=== PATIENT | male | born 1950 | race Caucasian/White ===

== ENCOUNTER 2020-12-22 10:29 | Inpatient (IN) | payer MEDICARE, SELFPAY ==
[2020-12-22] VITALS (10 sets, daily range): BP systolic 135–174; BP diastolic 71–105; PULSE 72–100; RESP 16–18; TEMP 36.4–36.8; O2SAT 96–98; BMI 27.7; BMI 29.2
--- NOTE | 2020-12-22 11:28 | EDS_ITS ---
HPI History of Present Illness Chief Complaint: General Illness Narrative Narrative: 70-year-old male presenting with generalized weakness as well as nausea for the last 3 weeks. Patient his states that he was working in the garden about 3 weeks ago and something stung him on his left buttocks. He had a rash initially but he states this is improving. Over the last couple of weeks he has had some nausea with eating and drinking and states that if he has too much he will vomit. He denies diarrhea or constipation. Patient does not have any urinary complaints. Patient does state that he has lost 25 pounds due to not eating and drinking. Patient also complains of right calf pain and denies any injury. He states he has a history of DVT and PE and is not anticoagulated. He does not recall why he had blood clots in the past. Patient is denying chest pain or shortness of breath. Patient denies, cough, chills, body aches. Patient does admit to fatigue. Patient states that he had a fever 101 a week ago. He has not had a repeat fever since then. His states that he looked sweaty last night but they did not check his temperature. [facility] Medical History History of DVT (deep vein thrombosis) History of pulmonary embolus (PE) Pilonidal cyst Seasonal allergies Home Medications albuterol sulfate 90 mcg/actuation aerosol inhaler 2 puff INHALATION Q4H PRN 30 Days #8 g 12/25/19 [Rx Last Taken Unknown] acetaminophen 1,000 mg PO TID PRN 12/22/20 [History Last Taken 12/21/20] Allergy/AdvReac Type Severity Reaction Status Date / Time acetaminophen [From Vicodin] AdvReac Severe rash and Verified 12/22/20 10:37 itching hydrocodone [From Vicodin] AdvReac Severe rash and Verified 12/22/20 10:37 itching Social History Smoking Status: Former smoker ROS ROS ED Constitutional Constitutional ED: Reports fever(s) and sweats Eyes Eyes: Denies blurry vision or diplopia ENT ENT ED: Denies rhinorrhea or sore throat Cardiovascular Cardiovascular: Denies chest pain or palpitations Respiratory/Chest Respiratory/Chest: Denies cough, dyspnea or sputum Gastrointestinal Gastrointestinal: Reports nausea and vomiting Genitourinary Genitourinary ED: Denies dysuria or hematuria Musculoskeletal Musculoskeletal: Denies arthralgias, back pain, myalgias or neck pain Integumentary Reports rash and other Details: Superficial rash to left buttocks Neurologic Neurologic: Denies headache(s) or paresthesias EXAM Physical Exam Const Vital Signs: 12/22/20 10:32 12/22/20 10:53 Temperature 97.6 F L Temperature Source Temporal Pulse Rate 100 Respiratory Rate 16 Respiratory Pattern Normal Blood Pressure 135/85 H Blood Pressure Mean 101 Pulse Ox 97 Oxygen Delivery Method Room Air Positive well nourished General Appearance ED: NAD HEENT Reports moist mucous membranes Negative for trauma Eyes PERRL and EOMs intact bilaterally Neck no lymphadenopathy and supple Resp normal respiratory effort and clear to auscultation bilaterally Cardio regular rate and regular rhythm Extremity Extremity Narrative: Tenderness to palpation over the central aspect of the right calf. There is no cords palpated. Compartments are soft. No swelling. No cellulitic changes. Neuro oriented x3, CN's II-XII intact bilaterally and no sensory deficits noted Sensorium / Orientation: alert Motor Exam: strength 5/5 throughout Psych mental status grossly normal Skin Skin Narrative: Punctate areas of left gluteal region which are scabbed over. No cellulitic changes. No crepitance. MDM MDM MDM Narrative Medical decision making narrative: Patient presenting with multiple symptoms of generalized weakness, fatigue, weight loss, forwarded sweating at home last evening. Initially he stated that he had not had any shortness of breath. Patient does relate a history of DVT and PE but does not recall if these were provoked or nonprovoked. I did obtain an EKG due to the diaphoresis last evening. His EKG shows a normal sinus rhythm with a ventricular rate of 84 bpm without signs of ST elevation or depression on my interpretation. His chest x- ray shows no acute cardiopulmonary process. His CBC shows a slight leukocytosis of 14.7 however his H&H stable and platelets are normal. Creatinine is 1.54 and I have no comparison. Troponin ended up being elevated at 126. Is unclear if this is due to a cardiac cause due to his diaphoresis last evening. I went to speak with him again about it he states that he had a couple episodes where he felt like he was short of breath but was not. He is not describing sharp chest pain or pleuritic chest pain. Is not describing chest pressure. He just states that he is short of breath. He did get aspirin 324 mg p.o. I did obtain a DVT study of the right lower extremity which showed an extensive DVT throughout the whole right lower extremity. For this reason and given his diaphoresis I did check a CTA and this is positive for bilateral PEs. It is possible that his troponin could be elevated because of heart strain although the radiologist does not note this on CTA. Given patient's abnormal findings I feel he would benefit from inpatient treatment. I spoke with the hospitalist who recommended starting heparin drip and this will be started. She also did recommend checking a Covid PCR which was ordered. This is pending on admission and will be followed by the hospitalist. Patient is stable on transfer to the medical floor. Impression: 1. Generalized weakness 2. NSTEMI 3. Bilateral PEs 4. Right lower extremity extensive DVT 5. Renal insufficiency Lab Data Labs: Laboratory Results - last 24 hr 12/22/20 12/22/20 11:56 11:56 WBC 14.7 H RBC 4.95 Hgb 14.7 Hct 43.6 MCV 88.1 MCH 29.7 MCHC 33.7 RDW Std Deviation 40.8 RDW Coeff of Maciej 12.6 Plt Count 195 MPV 10.7 Immature Gran % (Auto) 1.400 H Neut % (Auto) 75.5 H Lymph % (Auto) 7.6 L Howell % (Auto) 14.9 H Eos % (Auto) 0.1 Baso % (Auto) 0.5 Absolute Neuts (auto) 11.1 H Absolute Lymphs (auto) 1.11 Nucleated RBC % 0 Differential Comment COMMENT Diff Path Review May foll Sodium 132 L Potassium 4.6 Chloride 97 L Carbon Dioxide 25.0 Anion Gap 10 BUN 49 H Creatinine 1.54 H Estim Creat Clear Calc 46.18 Est GFR (MDRD) Af Amer 57 L Est GFR (MDRD) Non-Af 47 L BUN/Creatinine Ratio 31.8 H Glucose 118 H Calcium 9.2 Total Bilirubin 0.90 AST 19 ALT 32 Alkaline Phosphatase 78 Troponin I High Sens 126 H* Total Protein 7.9 Albumin 3.0 L Globulin 4.9 H Albumin/Globulin Ratio 0.6 L Lipase 50 L Radiography Diagnostic Testing: Radiology Impression Venous Doppler Study 12/22/20 11:41 Interpretation Summary RT CFV IS partially compressible. RT SFJ is partially compressible with echoes consistent with acute DVT. RT FV , POPV, T/P TRUNK, PTV, PEROV are dilated and NONCOMPRESSIBLE consistent with acute DVT. RT GSV is compressible . Normal flow patterns left common femoral vein Ordering Physician: Toney Machado Performed By: Amarilys Chambers, RDCS, RVT Chest X-Ray 12/22/20 12:30 IMPRESSION: Nonacute portable x-ray examination of the chest. Electronically Signed: Saad Quinteros MD ([place]) at 12:45 EDT , Service support , Chest CTA 12/22/20 12:31 IMPRESSION: 1. Multiple segmental pulmonary embolism. No saddle embolus or CT evidence of right heart strain. Electronically Signed: Saad Quinteros MD (Brooks) at 13:45 EDT , Service support , ADDENDUM: 12/22/20 1356 IMPRESSION: 1. Multiple segmental pulmonary embolism. No saddle embolus or CT evidence of right heart strain. N.B. : The above Results were Read Back by Saad Quinteros MD (Brooks) to Toney Machado DO, and understanding confirmed on 12/22/2020 13:49:42 (ET). Electronically Signed: Saad Quinteros MD (Brooks) at 13:45 EDT , Service support , Discharge Plan Triage Chief Complaint: General Illness ED Provider: Toney Machado Dx/Rx/DC Orders Primary Care Provider: Ximena Rey NP
--- NOTE | 2020-12-22 11:41 | VDLE_ITS ---
Reason For Study: PULM EMB RIGHT LEFT GSV is normal. CFV is compressible, spontaneous, phasic, RT CFV IS partially compressible. competent, and demonstrates normal RT SFJ is partially compressible with echoes augmentation. consistent with acute DVT. RT FV , POPV, T/P TRUNK, PTV, PEROV are dilated and NONCOMPRESSIBLE consistent with acute DVT. RT GSV is compressible . Procedure Exam performed portable in ED. A preliminary report was called and/or faxed to ED. VL/Venous Duplex US, Unilateral Interpretation Summary RT CFV IS partially compressible. RT SFJ is partially compressible with echoes consistent with acute DVT. RT FV , POPV, T/P TRUNK, PTV, PEROV are dilated and NONCOMPRESSIBLE consistent with acute DVT. RT GSV is compressible . Normal flow patterns left common femoral vein Ordering Physician: Toney Machado Performed By: Amarilys Chambers RDCS, RVT
--- NOTE | 2020-12-22 11:42 | EKG12_ITS ---
Test Reason : Blood Pressure : / mmHG Vent. Rate : 084 BPM Atrial Rate : 084 BPM P-R Int : 150 ms QRS Dur : 090 ms QT Int : 382 ms P-R-T Axes : 008 011 030 degrees QTc Int : 451 ms Normal sinus rhythm Anterior infarct , age undetermined Abnormal ECG Confirmed by SAM NGUYEN, ERUM ([id number]), field map editor KEVIN DE LEON ([id number]) on 12/23/2020 7:41:11 AM Referred By: YADIRA Confirmed By:ERUM VARGAS MD
[2020-12-22 12:05] LABS: Absolute Lymphocyte Count 1.11 X10^3/uL (0.83-4.51); Absolute Neutrophil Count 11.1 X10^3/uL (2.0-7.7); Basophil# 0.07 X10^3/uL; Basophil% 0.5 % (0-1); Eosinophil# 0.01 X10^3/uL; Eosinophils% 0.1 % (0-5); Hematocrit 43.6 % (40-54); Hemoglobin 14.7 g/dL (13.0-16.5); Lymphocyte # 1.11 X10^3/ul (0.83-4.51); Lymphocyte % 7.6 % (19-41); Mean Corp Hgb Conc 33.7 g/dL (32-36); Mean Corpuscular Hgb 29.7 pg (27.0-32.0); Mean Corpuscular Volume 88.1 fL (80-94); Mean Platelet Vol. 10.7 fl (6.2-12.0); Monocyte# 2.19 X10^3/uL; Monocyte% 14.9 % (0-10); NRBC Flagged by Analyzer 0 % (0-5); Neutrophil % 75.5 % (47-70); POSITIVE DIFFERENTIAL YES; Platelet Count 195 K/mm3 (150-450); RBC Distribution Width CV 12.6 % (11.6-14.6); RBC Distribution Width SD 40.8 fl (35.1-43.9); Red Blood Count 4.95 M/mm3 (4.6-6.2); White Blood Count 14.7 K/mm3 (4.4-11.0)
[2020-12-22 12:07] LABS: Differential Indicated SCAN CRITERIA MET
[2020-12-22] MEDS: Ondansetron 4 MG/2 ML Vial IV (12:13)
[2020-12-22 12:29] LABS: ALB/GLOB Ratio 0.6 RATIO (0.9-2.4); AST(SGOT) 19 U/L (15-37); Alanine Aminotransfer ALT/SGPT 32 U/L (16-61); Alkaline Phosphatase 78 U/L (45-117); Anion Gap 10 (5-15); BUN 49 mg/dL (7-18); BUN/Creat Ratio 31.8 RATIO (10-20); Calcium,Total 9.2 mg/dL (8.5-10.1); Chloride 97 mmol/L (98-107); Creatinine, Serum 1.54 mg/dL (0.70-1.30); EST Glomerular Filtration Rate 47 mL/min (>60); Est Glom Filt Rate - Afr Amer 57 mL/min (>60); Estimated Creatinine Clearance 46.18 ml/min; Globulin 4.9 g/dL (2.2-4.2); Glucose 118 mg/dL (74-106); Lipase 50 U/L (73-393); Potassium 4.6 mmol/L (3.5-5.1); Protein, Total 7.9 g/dL (6.4-8.2); Sodium Level 132 mmol/L (136-145); Troponin-I HS 126 pg/mL (3.0-78.0)
--- NOTE | 2020-12-22 12:30 | RAD_ITS ---
STUDY: X-RAY CHEST REASON FOR EXAM: Male, 70 years old. BODY ACHES, DECREASED ABILITY TO EAT, FEVERISH FEELING, WT'' LOSS - 25#. GENERAL DISCOMFORT. sTATES SX STARTED AFTER BUG BITE IN EARLT . RIGHT LOWER LEG PAIN TECHNIQUE: AP COMPARISON: None. FINDINGS: The lungs are clear and expanded. There is no demonstrated pleural abnormality. Normal size heart. Normal mediastinum and landon. Normal visualized pulmonary arteries. There is atherosclerotic tortuosity of the aortic arch and descending thoracic aorta. No acute bony process. There is no demonstrated abnormality of the visualized soft tissue structures of the upper abdomen. RAD/Chest 1 View (Portable) IMPRESSION: Nonacute portable x-ray examination of the chest. Electronically Signed: Saad Quinteros MD (Brooks) at 12:45 EDT , Service support ,
--- NOTE | 2020-12-22 12:31 | CT_ITS ---
We are attempting to reach an attending provider to discuss findings. An addendum with communication details will be sent when the communication is complete. STUDY: CTA CHEST REASON FOR EXAM: Male, 70 years old. Body aches, weight loss, right leg pain, weakness RADIATION DOSAGE (If Supplied By Facility): CTDIvol = ( 12.42 ) mGy, DLP = ( 507.44 ) mGycm TECHNIQUE: The examination was performed with the intravenous administration of IV 100mL Isovue-370. Post-processing of the angiographic images was performed, with multiplanar reformation and 3D reconstruction. Individualized dose optimization techniques were used for this CT. COMPARISON: None. FINDINGS: Normal enhancement of the main pulmonary artery and right and left pulmonary arteries. There are multiple filling defects involving the bilateral upper, lower, and right middle lobes. There is atherosclerotic calcification of the aortic arch with tortuosity. There is no demonstrated aortic dissection. No pericardial thickening. Heart size is normal. There are calcifications of the coronary arteries. Normal mediastinum. Normal hilar regions. Normal visualized trachea and bronchi. The lungs are hyper expanded, with flattening of the hemidiaphragms. There are bandlike parenchymal changes most consistent with atelectasis of the bilateral lungs. Scattered centrilobular emphysematous blebs. Normal pleura. Normal chest wall structures. There are degenerative changes of thoracic spine. Normal visualized upper abdomen. CT/CTA Chest W/WO Contrast IMPRESSION: 1. Multiple segmental pulmonary embolism. No saddle embolus or CT evidence of right heart strain. Electronically Signed: Saad Quinteros MD (Brooks) at 13:45 EDT , Service support ,
[2020-12-22] MEDS: Aspirin 81 MG TAB.CHEW 324 MG PO (13:02)
--- NOTE | 2020-12-22 14:14 | HP.PCM.HOS_ITS ---
HPI - General General Date of Admission: 12/22/20 Date of Service: 12/22/20 Chief Complaint: Dyspnea. HPI Narrative The patient is a 70 y/o M w/ PMHx: Hx prior DVT/PE, Allergic Rhintis who presents to the [facility] ED on 12/22/20 with history of generalized weakness, fatigue, malaise and nausea over the last 3 weeks with difficulty eating with bouts of emesis with remarks 25 pound weight loss secondary to significant decreased intake with onset of right lower extremity pain with no fever, chills, cough, body aches however he did report having a fever of 101 approximately 1 week prior to current presentation and reports also being diaphoretic at night. Work-up in the ED included T 97.6, heart rate 100, BP 135/85, respiratory rate 16, 97% on room air, CBC with WBC 14.7, hemoglobin 14.7, platelet 195 with left shift, CMP with sodium 132, chloride 97, BUN/creatinine 49/1.54, glucose 118, unremarkable hepatic profile, lipase 50, chest x-ray with no acute cardiopulmonary findings, CTPA w/ multiple segmental pulmonary embolism with no saddle embolus or evidence of right heart strain, bilateral lower extremity duplex ultrasound with evidence right lower extremity acute DVT, rapid Covid antigen negative, EKG with sinus rhythm with nonspecific changes with no acute evidence of ischemia, requested PCR. In the ED patient ministered aspirin 324 mg p.o. x1 as well as Zofran 4 mg IV x1. Patient started on heparin drip. [facility] Medical History (Updated 12/22/20 @ 19:[address] Peg Marinelli MD) Former tobacco use History of DVT (deep vein thrombosis) History of pulmonary embolus (PE) History of venous thromboembolism Pilonidal cyst Seasonal allergies Home Medications albuterol sulfate 90 mcg/actuation aerosol inhaler 2 puff INHALATION Q4H PRN 30 Days #8 g 12/25/19 [Rx Last Taken Unknown] acetaminophen 1,000 mg PO TID PRN 12/22/20 [History Last Taken 12/21/20] Allergy/AdvReac Type Severity Reaction Status Date / Time acetaminophen [From Vicodin] AdvReac Severe rash and Verified 12/22/20 10:37 itching hydrocodone [From Vicodin] AdvReac Severe rash and Verified 12/22/20 10:37 itching Family History (Updated 12/22/20 @ 19:[address] Peg Marinelli MD) Mother Heart disease Diabetes Father Heart disease Surgical History (Updated 12/22/20 @ 19:[address] Peg Marinelli MD) No significant past surgical history no surgical history Social History (Updated 12/22/20 @ 19:[address] Peg Marinelli MD) household members: spouse Smoking Status: Former smoker how long ago did patient quit smoking: Quit 2 years prior, prior 1 ppd (higher remotely) since early teenager. alcohol intake: former substance use type: does not use ROS ROS Narrative Admission Review of Systems: CONSTITUTIONAL: No chills, + hx recent fever 1 week prior, weight loss, weakness or fatigue. HEENT: Eyes: No visual loss, blurred vision, double vision or yellow sclerae. Ears, Nose, Throat: No hearing loss, sneezing, congestion, runny nose or sore throat. SKIN: No rash or itching, lesions, wounds. CARDIOVASCULAR: + chest pain/pleuritic, No chest pressure or chest discomfort, palpitations, edema, orthopnea, syncopal events. RESPIRATORY: + shortness of breath, No marked cough or sputum, wheezing, hemoptysis. GASTROINTESTINAL: + anorexia, nausea with vomiting, No diarrhea, abdominal pain, melena, BRBPR. GENITOURINARY: No dysuria, frequency, urgency or retention. NEUROLOGICAL: No headache, dizziness, syncope, paralysis, ataxia, numbness or tingling in the extremities, focal weakness, change in bowel or bladder control, seizure. MUSCULOSKELETAL: + muscle, back pain, joint pain or stiffness. HEMATOLOGIC: No anemia, bleeding or bruising. LYMPHATICS: No enlarged nodes. No history of splenectomy. PSYCHIATRIC: No history of depression or anxiety. ENDOCRINOLOGIC: No reports of sweating, cold or heat intolerance. No polyuria or polydipsia. ALLERGIES: + history of asthma, hives, eczema or rhinitis. Vital Signs Vital Signs Vital Signs: 12/22/20 10:32 12/22/20 10:53 Temperature 97.6 F L Temperature Source Temporal Pulse Rate 100 Respiratory Rate 16 Respiratory Pattern Normal Blood Pressure 135/85 H Blood Pressure Mean 101 Pulse Ox 97 Oxygen Delivery Method Room Air Weight Weight: 199 lb Body Mass Index (BMI) 27.7 Physical Exam Narrative Physical Examination: General: Awake, alert, oriented x 3, hard of hearing, remains cooperative, seated upright in the ED bed, fatigued appearing, no evidence of any respiratory distress. Skin: Normal color, normal turgor, no icterus, no cyanosis except for various staged ecchymoses. HEENT: AT/NC, EOMI, PERRLA, moderately dry MM, no carotid bruits or JVD noted. Lungs: Diminished, greater bases, mildly decreased effort, no rales, ronchi or wheezing. Heart: Mildly tachycardic with regular rhythm; no gallop, rub audible. Abdomen: Soft, NTTP, ND, mildly distant hyperactive BS, no obvious evidence of HSM. Extremities: No cyanosis, no clubbing, mild right greater than left lower extremity swelling, not markedly pitting, tender to palpation. Neurological: Patient awake, alert, oriented as noted, cognitive function appears baseline intact, hard of hearing; pupils equally reactive to light and accommodation, cranial nerves II-XII grossly normal, moving all 4 extremities, no focal deficits, strength moderately to severely global decrease. Psychiatric: Affect appears fatigued, no acute evidence of depressive or anxiety feelings. Results Lab / Micro Data Result Diagrams: 12/22/20 11:56 12/22/20 11:56 Labs: Laboratory Results - last 24 hr 12/22/20 11:56: WBC 14.7 H, RBC 4.95, Hgb 14.7, Hct 43.6, MCV 88.1, MCH 29.7, MCHC 33.7, RDW Std Deviation 40.8, RDW Coeff of Maciej 12.6, Plt Count 195, MPV 10.7, Immature Gran % (Auto) 1.400 H, Neut % (Auto) 75.5 H, Lymph % (Auto) 7.6 L , Meade % (Auto) 14.9 H, Eos % (Auto) 0.1, Baso % (Auto) 0.5, Absolute Neuts (auto) 11.1 H, Absolute Lymphs (auto) 1.11, Nucleated RBC % 0, Differential Comment COMMENT, Diff Path Review July12/22/20 11:56: Sodium 132 L, Potassium 4.6, Chloride 97 L, Carbon Dioxide 25.0, Anion Gap 10, BUN 49 H, Creatinine 1.54 H, Estim Creat Clear Calc 46.18, Est GFR (MDRD) Af Amer 57 L, Est GFR (MDRD) Non-Af 47 L, BUN/Creatinine Ratio 31.8 H, Glucose 118 H, Calcium 9.2, Total Bilirubin 0.90, AST 19, ALT 32, Alkaline Phosphatase 78, Troponin I High Sens 126 H*, Total Protein 7.9, Albumin 3.0 L, Globulin 4.9 H, Albumin/Globulin Ratio 0.6 L, Lipase 50 L Micro: Microbiology 12/22/20 12:49 Nasal Secretion SARS-CoV-2 Antigen (Rapid) - Final Radiology Impression Venous Doppler Study 12/22/20 11:41 Interpretation Summary RT CFV IS partially compressible. RT SFJ is partially compressible with echoes consistent with acute DVT. RT FV , POPV, T/P TRUNK, PTV, PEROV are dilated and NONCOMPRESSIBLE consistent with acute DVT. RT GSV is compressible . Normal flow patterns left common femoral vein Ordering Physician: Toney Machado Performed By: Amarilys Chambers, RDCS, RVT Chest X-Ray 12/22/20 12:30 IMPRESSION: Nonacute portable x-ray examination of the chest. Electronically Signed: Saad Quinteros MD (Brooks) at 12:45 EDT , Service support , Chest CTA 12/22/20 12:31 IMPRESSION: 1. Multiple segmental pulmonary embolism. No saddle embolus or CT evidence of right heart strain. Electronically Signed: Saad Quinteros MD (Brooks) at 13:45 EDT , Service support , ADDENDUM: 12/22/20 1356 IMPRESSION: 1. Multiple segmental pulmonary embolism. No saddle embolus or CT evidence of right heart strain. N.B. : The above Results were Read Back by Saad Quinteros MD (Brooks) to Toney Machado DO, and understanding confirmed on 12/22/2020 13:49:42 (ET). Electronically Signed: Saad Quinteros MD (Brooks) at 13:45 EDT , Service support , Assessment & Plan Assessment/Plan (1) Bilateral pulmonary embolism: PLAN: The patient is a 70 y/o M w/ PMHx: Hx prior DVT/PE, Allergic Rhintis who presents to the [facility] ED on 12/22/20 with history of generalized weakness, fatigue, malaise and nausea over the last 3 weeks with difficulty eating with bouts of emesis with remarks 25 pound weight loss secondary to significant decreased intake with onset of right lower extremity pain with no fever, chills, cough, body aches however he did report having a fever of 101 approximately 1 week prior to current presentation and reports also being diaphoretic at night. 1. Dyspnea, chest pain secondary to Pulmonary Embolism with elevated cardiac enzyme likely associated secondary to demand with prior history of DVT/PE LLE/L sided PE remotely, Questionably related to Acute COVID-19 (awaiting PCR given history reported, rapid antigen negative): EKG without acute findings, CXR no acute process, CTPA with multiple segmental pulmonary embolism with no evidence of saddle embolism, troponin mildly elevated 126. Patient with prior DVT/PE history. Will admit to PCU, maintain on cardiac telemetry. Will obtain ECHO, BNP. ED BL LE DVT US with evidence of right lower extremity acute DVT. Will continue therapeutic heparin drip regimen with pending AM insurance oral regimen investigation. Rapid Covid antigen testing negative however given sudden acute onset presentation will request PCR to be cautious although does have prior VTE history and is not anticoagulated currently upon his presentation. 2. Chest Pain likely secondary to #1 primarily however mildly elevated cardiac enzyme, possibly demand: EKG in ED w/ sinus rhythm with nonspecific changes with no evidence of ischemia, CXR w/ no acute cardiopulmonary findings, CTPA as noted above with multiple segmental pulmonary embolism with no saddle. Trop elevated, high-sensitivity 126. Will maintain on a monitored bed, continue serial cardiac enzymes and EKGs. Obtain magnesium level upon admission. FLP in AM. Obtain echocardiogram. Continue medical management. ASA, NG, morphine. 3. Failure to thrive, adult: Patient with significant recent weight loss, decreased oral intake for the last 3 weeks, pending Covid PCR as noted, will maintain on fall precautions, consult nutrition, consult case management/PT/OT for discharge planning. 4. JONO versus Chronic Kidney Disease Stage III, unclear subtype: Admission BUN/Cr 49/1.54, baseline renal function unknown, continue judicious hydration, repeat BMP in AM. 5. DVT prophylaxis: SCDs, continue heparin drip as noted above. 6. CODE status: Patient VICENTE is his who is present and his daughter is secondary and living will is currently in place. Discussed CODE status at length including difference between FULL code, DNR-CCA and DNR-CC status. Following discussions about the differences in these status, requested Full Code status. Advanced Care Planning Face to Face Time: 16 minutes. Charges/Coding Visit Charges Inpatient E&M: 82503 Init Hosp L3 Procedures Hospitalists Procedures: 52363 Advncd Care Plan 30 Min
[2020-12-22 15:01] LABS: Magnesium 2.5 mg/dL (1.6-2.6)
[2020-12-22] MEDS: Heparin Injection (Vial) 5,000 UNIT/ML VIAL 4000 UNIT IV (15:12)
[2020-12-22] MEDS: HEPARIN/D5w 25,000 UNITS 25,000 UNITS/250 ML IV.SOLN. 10 UNITS IV (15:17)
[2020-12-22 15:20] LABS: BNP,B-Type NATRIURETIC PEPTIDE 52.1 pg/mL (0-100)
[2020-12-22 15:25] LABS: International Normalized Ratio 1.4; Partial Thromboplast Time 29.5 Seconds (24.1-36.2); Prothrombin Time (Protime)PT. 16.6 SECONDS (11.7-14.9)
--- NOTE | 2020-12-22 16:19 | PCS.PANDOC ---
PANDEMIC DOCUMENTATION INITIATED: Date: 11/03/2020 Time: 190
--- NOTE | 2020-12-22 16:31 | ECHOCS_ITS ---
Version 2 Reason For Study: PULMONARY EMBOLISM Procedure This was a 2D Doppler, Color Flow transthoracic echocardiogram. The study was technically difficult. Poor parasteranl accoustic windows. Contrast injection was performed. Left Ventricle Based upon the 2D echocardiographic and contrast enhanced images obtained there appears to be grossly normal left ventricular size, wall motion, and systolic function. The estimated ejection fraction is 65 %. Diastolic function is indeterminate. Right Ventricle Based upon the 2D echocardiographic and contrast enhanced images obtained there appears to be grossly normal right ventricular size and systolic function. Atria Normal left atrium. Normal right atrium. No doppler evidence for ASD. Mitral Valve There is mild mitral annular calcification. Extension of the mitral annular calcification onto the base of the posterior mitral valve leaflet. Trivial mitral valve insufficiency. Tricuspid Valve The tricuspid valve is not well visualized. Aortic Valve The aortic valve is not well visualized. Pulmonic Valve The pulmonic valve is not well visualized. Great Vessels The aortic root is not well visualized. Pericardium/Pleural No pericardial effusion. Medication Diluted definity 2.0ml given slow IV push to enhance endocardial definition. MMode/2D Measurements & Calculations LVIDd: 4.8 cm IVSd: 1.1 cm LAV(MOD-sp2): 83.4 ml LVIDs: 3.2 cm LVPWd: 1.1 cm LAV(MOD-sp4): 67.4 ml FS: 32.9 % Time Measurements MV dec time: 0.27 sec Doppler Measurements & Calculations MV E max kerry: 69.7 cm/sec Ao V2 max: 159.9 cm/sec LV V1 max: 106.8 cm/sec MV A max kerry: 91.0 cm/sec Ao max P.2 mmHg LV V1 max P.6 mmHg MV E/A: 0.77 ECHO/Echo Complete W/ Contrast Interpretation Summary The study was technically difficult. Contrast injection was performed. Based upon the 2D echocardiographic and contrast enhanced images obtained there appears to be grossly normal left ventricular size, wall motion, and systolic function. The estimated ejection fraction is 65 %. Diastolic function is indeterminate. 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 Ordering Physician: Peg Marinelli Referring Physician: Ximena Rey Performed By: Anh Mendoza RDCS, CECI
--- NOTE | 2020-12-22 16:54 | EKG12_ITS ---
Test Reason : AM EKG Blood Pressure : / mmHG Vent. Rate : 071 BPM Atrial Rate : 071 BPM P-R Int : 158 ms QRS Dur : 092 ms QT Int : 420 ms P-R-T Axes : 031 020 025 degrees QTc Int : 456 ms Sinus rhythm with occasional Premature ventricular complexes Confirmed by TAWANDA NGUYEN, JOSÉ ([id number]), health editor KEVIN DE LEON ([id number]) on 12/23/2020 10:04:45 AM Referred By: ENRIQUE Confirmed By:JOSÉ NEFF MD
[2020-12-22] MEDS: 0.9% Normal Saline 1,000 ML 100 ML IV (16:59)
[2020-12-22] MEDS: HEPARIN/D5w 25,000 UNITS 25,000 UNITS/250 ML IV.SOLN. 14 UNITS IV (17:10)
[2020-12-22 17:33] LABS: Troponin-I HS 123 pg/mL (3.0-78.0)
[2020-12-22 19:15] LABS: Troponin-I HS 113 pg/mL (3.0-78.0)
[2020-12-22] MEDS: hydrALAZINE 20 MG/ML Vial 10 MG IV (20:15)
[2020-12-22] MEDS: Famotidine 20 MG Tablet PO (20:15)
[2020-12-23] VITALS (11 sets, daily range): BP systolic 140–165; BP diastolic 63–79; PULSE 69–87; RESP 16–18; TEMP 36.7–37.8; O2SAT 96–99
[2020-12-23] MEDS: Acetaminophen 325 MG Tablet 650 MG PO ×3 (02:35→20:19)
[2020-12-23 03:47] LABS: Absolute Neutrophil Count 8.2 X10^3/uL (2.0-7.7); Basophil# 0.12 X10^3/uL; Eosinophil# 0.14 X10^3/uL; Eosinophils% 1.2 % (0-5); Hematocrit 42.5 % (40-54); Hemoglobin 13.5 g/dL (13.0-16.5); Lymphocyte % 11.1 % (19-41); Mean Corp Hgb Conc 31.8 g/dL (32-36); Mean Corpuscular Hgb 29.5 pg (27.0-32.0); Mean Corpuscular Volume 92.8 fL (80-94); Mean Platelet Vol. 10.6 fl (6.2-12.0); Monocyte# 1.79 X10^3/uL; Monocyte% 15.4 % (0-10); NRBC Flagged by Analyzer 0 % (0-5); Neutrophil # 8.22 X10^3/uL (2.7-7.7); Neutrophil % 70.5 % (47-70); POSITIVE DIFFERENTIAL YES; Platelet Count 193 K/mm3 (150-450); RBC Distribution Width CV 12.8 % (11.6-14.6); RBC Distribution Width SD 43.4 fl (35.1-43.9); Red Blood Count 4.58 M/mm3 (4.6-6.2); White Blood Count 11.7 K/mm3 (4.4-11.0)
[2020-12-23 03:53] LABS: Differential Indicated SCAN CRITERIA MET
[2020-12-23 04:05] LABS: ALB/GLOB Ratio 0.6 RATIO (0.9-2.4); AST(SGOT) 16 U/L (15-37); Alanine Aminotransfer ALT/SGPT 25 U/L (16-61); Albumin, Serum 2.6 g/dL (3.2-5.0); Alkaline Phosphatase 73 U/L (45-117); Anion Gap 9 (5-15); BUN 42 mg/dL (7-18); BUN/Creat Ratio 35.6 RATIO (10-20); Calcium,Total 8.6 mg/dL (8.5-10.1); Chloride 102 mmol/L (98-107); Cholesterol 142 mg/dL (200); Creatinine, Serum 1.18 mg/dL (0.70-1.30); EST Glomerular Filtration Rate 64 mL/min (>60); Est Glom Filt Rate - Afr Amer 78 mL/min (>60); Estimated Creatinine Clearance 60.27 ml/min; Globulin 4.5 g/dL (2.2-4.2); Glucose 92 mg/dL (74-106); High Density Lipoprotein 29 mg/dL; Potassium 4.1 mmol/L (3.5-5.1); Protein, Total 7.1 g/dL (6.4-8.2); Sodium Level 134 mmol/L (136-145); Triglycerides 119 mg/dL; Very Low Density Lipoprotein 24 mg/dL (5-40)
[2020-12-23 04:25] LABS: Partial Thromboplast Time 67.9 Seconds (24.1-36.2)
[2020-12-23 04:46] LABS: Differential Comment SCANNED
--- NOTE | 2020-12-23 05:55 | EKG12_ITS ---
Test Reason : CP ADMISSION Blood Pressure : / mmHG Vent. Rate : 081 BPM Atrial Rate : 081 BPM P-R Int : 156 ms QRS Dur : 092 ms QT Int : 400 ms P-R-T Axes : 010 004 015 degrees QTc Int : 464 ms Normal sinus rhythm Normal ECG Confirmed by TAWANDA NGUYEN, JOSÉ ([id number]), story editor KEVIN DE LEON ([id number]) on 12/23/2020 10:07:48 AM Referred By: ENRIQUE Confirmed By:JOSÉ NEFF MD
[2020-12-23] MEDS: HEPARIN/D5w 25,000 UNITS 25,000 UNITS/250 ML IV.SOLN. 14 UNITS IV (09:43)
[2020-12-23] MEDS: Menthol/Lanolin/Calamine/Znox 113 GM Tube 1 APPLIC TOPICAL ×4 (09:45→20:19)
[2020-12-23] MEDS: Aspirin 81 MG TAB.CHEW PO (09:45)
[2020-12-23] MEDS: Famotidine 20 MG Tablet PO ×2 (09:45→20:19)
--- NOTE | 2020-12-23 10:45 | CASEMGMT ---
KATHRYN ADAME assessment: Face to Face with patient for initial transition planning/care coordination assessment. RN DEEP introduced self and role at [facility], pt voices understanding and consents to assessment. Pt is sitting up in bed on room air in no distress. Pt is A/O x4 and answers all questions appropriately. Pt's is at bedside during assessment. Care providers, pharmacy, and demographics verified. Presentation: Pt c/o body aches, decreased intake, fever, weight loss s/p bug bite in november Admitting dx: NSTEMI, PE, DVT PCP: [facility] Specialists: Pt states no current specialists. Preferred Pharmacy: [facility] Insurance: [facility] A only Prescription Benefit: Pt states does not have Rx coverage. CM to follow for anti-coag. Austin GUDINO aware that pt does not have Rx coverage, voices understanding. Living Will/HPOA: Pt has LW/HPOA and is aware that they are not on file at [facility]. Pt's , Chelo Montalvo, is HPOA. LNOK: Chelo Montalvo, ; Shawnee Ramirez, daughter Living Arrangements: Pt lives with in 2 story home with ability to stay on main level and states no concerns at home. Pt is independent with ADL's. Transportation: Pt drives or drives and states no transportation concerns. DME/HHC: Pt has the following DME: cane, walker, grab bars, and shower chair. Pt states no need for any further DME. Pt states no hx of HHC or SNF. Pt states no concerns with going home at time of discharge. Pt is retired. Pt states does not smoke cigarettes or drink ETOH. Pt voices no further concerns/needs. CM to follow for any further discharge planning/needs. Advised pt to ask for CM if any further questions/concerns/needs arise, voices understanding. Pt Goal: Home Plan[place] KATHRYN ADAME
--- NOTE | 2020-12-23 10:57 | NURSING ---
Pandemic documentation in effect.
[2020-12-23 11:16] LABS: Partial Thromboplast Time 64.5 Seconds (24.1-36.2)
[2020-12-23 12:01] LABS: Pathologist Review Reviewed
[2020-12-23 12:03] LABS: Pathologist Review Reviewed
--- NOTE | 2020-12-23 12:31 | PN.HOSP_ITS ---
Documented by User: Remy GUDINO 12/23/20 12:44 Subjective Subjective Patient is a 70-year-old male comfortably resting in bed, alert and orient x3. Patient reports resolution of his shortness of breath from admission. Denies development of any new symptoms overnight. Does not appear in acute distress. Objective Data Objective Data Vital Signs: Vital Signs Temp Pulse Resp BP Pulse Ox 98.1 F 79 18 145/63 H 98 12/23/20 09:40 12/23/20 11:00 12/23/20 09:40 12/23/20 09:40 12/23/20 09:40 Oxygen Delivery Method Room Air Weight: 209 lb 14.081 oz Body Mass Index (BMI) 29.2 Intake & Output: Intake and Output for Last 24 Hours 12/21/20 12/22/20 12/23/20 23:59 23:59 23:59 Intake Total 572.47 / 572.47 1237.73 / 1237.73 Output Total 600 / 600 200 / 200 Balance -27.53 / -27.53 1037.73 / 1037.73 Lab / Micro Data Result Diagrams: 12/23/20 03:34 12/23/20 03:34 Labs: Laboratory Results - last 24 hr 12/22/20 11:56: Differential Comment COMMENT, Diff Path Review Reviewed 12/22/20 11:56: Magnesium 2.5 12/22/20 11:56: B-Natriuretic Peptide 52.1 12/22/20 14:34: COVID-19 (KHALIF) Not Detected 12/22/20 15:10: PT 16.6 H, INR 1.4, APTT 29.5 12/22/20 16:55: Troponin I High Sens 123 H* 12/22/20 18:29: Troponin I High Sens 113 H 12/22/20 21:35: APTT 67.0 H 12/23/20 03:34: WBC 11.7 H, RBC 4.58 L, Hgb 13.5, Hct 42.5, MCV 92.8 D, MCH 29.5, MCHC 31.8 L D, RDW Std Deviation 43.4, RDW Coeff of Maciej 12.8, Plt Count 193, MPV 10.6, Immature Gran % (Auto) 0.800, Neut % (Auto) 70.5 H, Lymph % (Auto) 11.1 L, [place] % (Auto) 15.4 H, Eos % (Auto) 1.2, Baso % (Auto) 1.0, Absolute Neuts (auto) 8.2 H, Absolute Lymphs (auto) 1.30, Nucleated RBC % 0, Differential Comment SCANNED, Diff Path Review Reviewed 12/23/20 03:34: Sodium 134 L, Potassium 4.1, Chloride 102, Carbon Dioxide 23.0, Anion Gap 9, BUN 42 H, Creatinine 1.18, Estim Creat Clear Calc 60.27, Est GFR (MDRD) Af Amer 78, Est GFR (MDRD) Non-Af 64, BUN/Creatinine Ratio 35.6 H, Glucose 92, Calcium 8.6, Total Bilirubin 0.60, AST 16, ALT 25, Alkaline Phosphatase 73, Total Protein 7.1, Albumin 2.6 L, Globulin 4.5 H, Albumin/Globulin Ratio 0.6 L, Triglycerides 119, Cholesterol 142, LDL Cholesterol 89, VLDL Cholesterol 24, HDL Cholesterol 29 L 12/23/20 03:34: APTT 67.9 H 12/23/20 10:53: APTT 64.5 H Micro: Microbiology 12/22/20 12:49 Nasal Secretion SARS-CoV-2 Antigen (Rapid) - Final Radiography Diagnostic Testing: Radiology Impression Venous Doppler Study 12/22/20 11:41 Interpretation Summary RT CFV IS partially compressible. RT SFJ is partially compressible with echoes consistent with acute DVT. RT FV , POPV, T/P TRUNK, PTV, PEROV are dilated and NONCOMPRESSIBLE consistent with acute DVT. RT GSV is compressible . Normal flow patterns left common femoral vein Ordering Physician: Toney Machado Performed By: Amarilys Chambers, PINOCS, RVT Chest X-Ray 12/22/20 12:30 IMPRESSION: Nonacute portable x-ray examination of the chest. Electronically Signed: Saad Quinteros MD (Brooks) at 12:45 EDT , Service support , Chest CTA 12/22/20 12:31 IMPRESSION: 1. Multiple segmental pulmonary embolism. No saddle embolus or CT evidence of right heart strain. Electronically Signed: Saad Quinteros MD (Brooks) at 13:45 EDT , Service support , ADDENDUM: 12/22/20 1356 IMPRESSION: 1. Multiple segmental pulmonary embolism. No saddle embolus or CT evidence of right heart strain. N.B. : The above Results were Read Back by Saad Quinteros MD (Brooks) to Toney Machado DO, and understanding confirmed on 12/22/2020 13:49:42 (ET). Electronically Signed: Saad Quinteros MD (Brooks) at 13:45 EDT , Service support , Echocardiogram 12/22/20 16:31 Interpretation Summary The study was technically difficult. Contrast injection was performed. Based upon the 2D echocardiographic and contrast enhanced images obtained there appears to be grossly normal left ventricular size, wall motion, and systolic function. The estimated ejection fraction is 65 %. Diastolic function is indeterminate. Comment: Echo lucency compatible with an hepatic cyst-consider further radiologic evaluation as deemed appropriate. Ordering Physician: Peg Marinelli Referring Physician: Ximena Rey Performed By: Anh Mendoza, RDCS, RVT Physical Exam Const alert, oriented x3 and no apparent distress HEENT head/scalp atraumatic, moist oral mucous membranes and oropharynx normal Head and Scalp: normocephalic Eyes PERRL, EOMs intact bilaterally and conjunctivae normal Neck no lymphadenopathy, supple and no JVD Resp normal respiratory effort, no retractions, no use of accessory muscles and clear to auscultation bilaterally Cardio regular rate, regular rhythm, no murmurs and no JVD GI normal to inspection, nondistended, normoactive bowel sounds, soft to palpation and non-tender Extremity normal to inspection, full ROM and no clubbing, cyanosis or edema Peripheral Pulses: Yes pulses 2+ throughout Skin no rashes or lesions noted, no wounds, skin turgor normal and no jaundice Neuro CN's II-XII intact bilaterally Psych affect normal Assessment & Plan Assessment/Plan (1) Bilateral pulmonary embolism: (2) SOB (shortness of breath): (3) Wheezing: PLAN: Day 1 Discharge planning: Current plan is for patient to discharge home, case management following. 1) pulmonary embolism Patient reports improvement of shortness of breath and does not appear to be in acute distress, currently satting 98% on room air. Chest CTA on admission demonstrated multiple segmental pulmonary embolism. Doppler study consistent with right-sided deep venous thrombosis. Rapid Covid was negative on admission, PCR pending. Currently on heparin drip initiated at admission. Possible discharge tomorrow. 2) adult failure to thrive On admission patient admitted that he had significant weight loss and decreased oral intake the last 3 weeks. Infectious etiology being worked up as above. Case management and PT/OT consulted for discharge planning. 3) JONO Resolved, currently 1.18 we will continue to trend BMP. DVT prophylaxis - SCDs with therapeutic heparin as above. Patient seen by Remy Edwards PA-C, under the supervision of Dr. Karimi. Documented by User: Dr. Cyrus Karimi MD 12/23/20 12:58 Objective Data Lab / Micro Data Result Diagrams: 12/23/20 03:34 12/23/20 03:34 Assessment & Plan Addt'l Comments This patient was seen in conjunction with Remy Edwards PA-C. I have independently interviewed and examined the patient and reviewed pertinent historical, laboratory, and other data. Please refer to Remy Edwards PA-C's note for details of this patient's presentation, findings, and recommendations. I have reviewed Remy Edwards PA-C's note and concur with documented findings. 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 Venous duplex obtained demonstrated acute DVT involving the right lower extremities multiple vessels. CTA subsequently obtained demonstrated multiple segmental pulmonary embolism started on heparin admitted to a monitored bed for further management Physical Examination: GENERAL: cooperative HEENT: Atraumatic; EYES; Anicteric, Normal Conjunctiva NECK; supple, normal thyroid, RESPIRATORY: Diminished to auscultation CARDIOVASCULAR: Regular S1 S2, GI: soft, normoactive bowel sounds, : No Renal angle tenderness; EXTREMITIES: No edema, no clubbing, MUSCULOSKELETAL: no muscle waisting NEURO: Awake; no lateralizing signs. SKIN: No Rash PSYCH; Flat affect Assessment: 1. Acute venous thromboembolism with both PE as well as DVT 2. Seasonal allergies 3. Overweight with BMI of 39.3 4. Mild hyponatremia 5. Acute renal insufficiency Recommendations: 1. I have discussed the results of my overview and impressions with the patient 2. Options for management were reviewed Charges/Coding Visit Charges Inpatient E&M: 79641 Subs Hosp L3
[2020-12-23 16:52] LABS: Partial Thromboplast Time 60.8 Seconds (24.1-36.2)
[2020-12-24] VITALS (9 sets, daily range): BP systolic 151–168; BP diastolic 76–82; PULSE 67–83; RESP 18; TEMP 36.4–37.6; O2SAT 97–98
[2020-12-24] MEDS: HEPARIN/D5w 25,000 UNITS 25,000 UNITS/250 ML IV.SOLN. 14 UNITS IV (04:08)
[2020-12-24] MEDS: Acetaminophen 325 MG Tablet 650 MG PO ×2 (04:16→12:32)
[2020-12-24 06:42] LABS: Absolute Lymphocyte Count 1.16 X10^3/uL (0.83-4.51); Absolute Neutrophil Count 7.6 X10^3/uL (2.0-7.7); Basophil# 0.09 X10^3/uL; Basophil% 0.8 % (0-1); Eosinophil# 0.28 X10^3/uL; Eosinophils% 2.5 % (0-5); Hematocrit 38.4 % (40-54); Hemoglobin 12.8 g/dL (13.0-16.5); Lymphocyte # 1.16 X10^3/ul (0.83-4.51); Lymphocyte % 10.4 % (19-41); Mean Corp Hgb Conc 33.3 g/dL (32-36); Mean Corpuscular Hgb 29.3 pg (27.0-32.0); Mean Corpuscular Volume 87.9 fL (80-94); Mean Platelet Vol. 10.9 fl (6.2-12.0); Monocyte# 1.82 X10^3/uL; Monocyte% 16.4 % (0-10); NRBC Flagged by Analyzer 0 % (0-5); Neutrophil # 7.64 X10^3/uL (2.7-7.7); Neutrophil % 68.7 % (47-70); POSITIVE DIFFERENTIAL YES; Platelet Count 250 K/mm3 (150-450); RBC Distribution Width CV 12.5 % (11.6-14.6); RBC Distribution Width SD 40.7 fl (35.1-43.9); Red Blood Count 4.37 M/mm3 (4.6-6.2); White Blood Count 11.1 K/mm3 (4.4-11.0)
[2020-12-24 06:52] LABS: Differential Indicated SCAN CRITERIA MET
[2020-12-24 06:57] LABS: Partial Thromboplast Time 79.4 Seconds (24.1-36.2)
[2020-12-24 07:11] LABS: Anion Gap 8 (5-15); BUN 41 mg/dL (7-18); BUN/Creat Ratio 32.8 RATIO (10-20); Calcium,Total 8.9 mg/dL (8.5-10.1); Chloride 100 mmol/L (98-107); Creatinine, Serum 1.25 mg/dL (0.70-1.30); EST Glomerular Filtration Rate 60 mL/min (>60); Est Glom Filt Rate - Afr Amer 73 mL/min (>60); Estimated Creatinine Clearance 56.89 ml/min; Glucose 109 mg/dL (74-106); Magnesium 2.6 mg/dL (1.6-2.6); Sodium Level 133 mmol/L (136-145)
[2020-12-24] MEDS: Aspirin 81 MG TAB.CHEW PO (08:01)
[2020-12-24] MEDS: Menthol/Lanolin/Calamine/Znox 113 GM Tube 1 APPLIC TOPICAL (08:02)
[2020-12-24] MEDS: Famotidine 20 MG Tablet PO (08:02)
--- NOTE | 2020-12-24 10:49 | DCINST_ITS ---
Discharge Instructions Diet Discharge Diet: No restrictions Activity Discharge Activity: Return to Normal Activity Weight Bearing Status: Weight bearing as tolerated Dressing / Incision Call your doctor if you observe: Fever of 101 or Higher, Numbness or Tingling, Shortness of breath, Dizziness, Chest pain, Increased palpitations (irregular heartbeat) and Calf discomfort Follow Up Care Please Follow Up With: Primary care provider When: Within the next two weeks. Test Results: Test results from this visit will be discussed in further detail at your follow-up appointment, if applicable. Discharge Plan Admission Admit Date/Time: 12/22/20 14:40 Primary Reason for Your Visit: Shortness of breath Attending Provider: Cyrus Karimi Primary Care Provider: Ximena Rey NP Discharge Orders/Prescriptions Prescriptions: New Eliquis DVT-PE Treat 30D Start 5 mg (74 tabs) tablets,dose pack 5 mg PO BID Qty: 74 RF: 0 Continued albuterol sulfate [Ventolin HFA] 90 mcg/actuation HFA aerosol inhaler 2 puff inhalation Q4H PRN (Reason: asthma) 30 Days Qty: 8 RF: 3 acetaminophen 500 mg Capsule 1,000 mg PO TID PRN (Reason: Pain) RF: 0 Referrals / Follow Up: Ximena Rey NP, BONDING EQUIPMENT OPERATOR-C [Primary Care Provider] - Within 2 Weeks Disposition Disposition (needs filled in before D/C Order can be placed): Home, Self Care
[2020-12-24] MEDS: APIXABAN 5 MG TABLET 10 MG PO (10:56)
[2020-12-24] MEDS: hydrALAZINE 20 MG/ML Vial 10 MG IV (11:07)
[2020-12-24] MEDS: 0.9% Saline Lock 10 ML Syringe IV (11:08)
--- NOTE | 2020-12-24 11:15 | CASEMGMT ---
Pt to be sent home on Eliquis but does not have Rx Coverage. Pt/ aware of cost but would like to stay on this for the moment and then f/u with physician in regards to script/med for next month and following. Pt/ provided with Eliquis 30 day free trial card w/ explanation, voice understanding and voice no further questions/concerns/needs with going home. SStwillian PERALTA CM
--- NOTE | 2020-12-24 11:43 | PHA.DC.MC ---
Pharmacy Service has performed discharge medication reconciliation and counseling for this patient. 1. APIXABAN 10MG PO BID X 7 DAYS, THEN 5MG PO BID The patient's discharge medication list was reviewed for discrepancies and discrepancies were resolved. Patient complained of chest pain while this [facility] was in the room. This [facility] then notified TERESE Edwards. Home Medications albuterol sulfate 90 mcg/actuation aerosol inhaler 2 puff INHALATION Q4H PRN 30 Days #8 g 12/25/19 acetaminophen 1,000 mg PO TID PRN 12/22/20 apixaban [Eliquis DVT-PE Treat 30D Start] 5 mg PO BID #74 tab 12/24/20 The patient was counseled on the following discharge medications and changes in medications for homegoing were reviewed. The Reason for Use, instructions for use, and potential side effects were reviewed for all new medications. The patient's questions regarding all of their medications were answered. The patient was able to verbally demonstrate an understanding of their discharge medications.
--- NOTE | 2020-12-24 11:45 | EKG12_ITS ---
Test Reason : CP Blood Pressure : / mmHG Vent. Rate : 082 BPM Atrial Rate : 082 BPM P-R Int : 144 ms QRS Dur : 088 ms QT Int : 368 ms P-R-T Axes : 041 013 021 degrees QTc Int : 429 ms Normal sinus rhythm Normal ECG When compared with ECG of 23-DEC-2020 05:09, Premature ventricular complexes are no longer Present Confirmed by SAM NGUYEN, ERUM ([id number]), editor trade journal KEVIN DE LEON ([id number]) on 12/30/2020 10:01:15 AM Referred By: JANETTE Confirmed By:ERUM VARGAS MD
[2020-12-24 12:43] LABS: Pathologist Review Reviewed
--- NOTE | 2020-12-24 13:48 | DS.PCM_ITS ---
Documented by User: Remy GUDINO 12/24/20 14:03 Providers Date of Admission: 12/22/20 Primary Care Physician: WILMAR Yang Reason For Visit: BL PE / CP / FTT ADULT Diagnosis Discharge Diagnosis (1) Bilateral pulmonary embolism: Status: Acute Code(s): I26.99 - Other pulmonary embolism without acute cor pulmonale (2) SOB (shortness of breath): Status: Acute Code(s): R06.02 - Shortness of breath (3) Wheezing: Status: Acute Code(s): R06.2 - Wheezing Medications at Discharge Home Medications albuterol sulfate 90 mcg/actuation aerosol inhaler 2 puff INHALATION Q4H PRN 30 Days #8 g 12/25/19 acetaminophen 1,000 mg PO TID PRN 12/22/20 apixaban [Eliquis DVT-PE Treat 30D Start] 5 mg PO BID #74 tab 12/24/20 Hospital Course Summary of Care Provided Minutes Spent on Discharge: 35 Hospital Course: Disposition: Patient to discharge home. 1) pulmonary embolism Patient reports improvement of shortness of breath and does not appear to be in acute distress, currently satting 98% on room air. Chest CTA on admission demonstrated multiple segmental pulmonary embolism. Doppler study consistent with right-sided deep venous thrombosis. Rapid Covid was negative on admission, PCR pending. Echocardiogram from 12/23 demonstrated normal LV size and function and an estimated EF of 65%, with indeterminate diastolic dysfunction. Currently on heparin drip initiated at admission. Patient initiated on Eliquis on discharge: 10 mg twice daily for 7 days, then followed by 5 mg twice daily thereafter. 2) adult failure to thrive On admission patient admitted that he had significant weight loss and decreased oral intake the last 3 weeks. Rapid Covid was negative as well as viral respiratory panel. Vital signs were stable throughout admission and patient was afebrile. CBC did not demonstrate a leukocytosis. No further home health care needs were identified by case management consult. 3) JONO Resolved. Patient seen by Remy Edwards PA-C, under the supervision of Dr. Karimi. Physical Exam Narrative Patient is a 70-year-old male comfortably resting in bed, alert and oriented x3. Patient reports resolution of shortness of breath for admission. Denies development of any new symptoms overnight. Denies chest pain, shortness of breath, palpitations, hemoptysis, sputum production, fever, chills, N/V/D. Const alert, oriented x3 and no apparent distress HEENT normocephalic, head/scalp atraumatic and hearing grossly normal bilaterally Eyes PERRL, EOMs intact bilaterally and conjunctivae normal Neck no lymphadenopathy, supple and no JVD Resp normal respiratory effort, no retractions, no use of accessory muscles and clear to auscultation bilaterally Cardio regular rate, regular rhythm, no murmurs and no JVD GI normal to inspection, nondistended, normoactive bowel sounds, soft to palpation and non-tender Extremity normal to inspection, full ROM and no clubbing, cyanosis or edema Skin no rashes or lesions noted, no wounds and skin turgor normal Neuro CN's II-XII intact bilaterally Psych affect normal Weight / BMI Weight Weight: 209 lb 10.554 oz Body Mass Index (BMI) 29.2 ABG / Lab / Microbiology Data Result Diagrams: 12/24/20 06:12 12/24/20 06:12 Laboratory: Laboratory Results - last 24 hr 12/23/20 16:28: APTT 60.8 H 12/24/20 06:12: WBC 11.1 H, RBC 4.37 L, Hgb 12.8 L, Hct 38.4 L, MCV 87.9 D, MCH 29.3, MCHC 33.3, RDW Std Deviation 40.7, RDW Coeff of Maciej 12.5, Plt Count 250, M PV 10.9, Immature Gran % (Auto) 1.200 H, Neut % (Auto) 68.7, Lymph % (Auto) 10.4 L, [place] % (Auto) 16.4 H, Eos % (Auto) 2.5, Baso % (Auto) 0.8, Absolute Neuts (auto) 7.6, Absolute Lymphs (auto) 1.16, Nucleated RBC % 0, Diff Path Review Reviewed 12/24/20 06:12: Sodium 133 L, Potassium 4.0, Chloride 100, Carbon Dioxide 25.0, Anion Gap 8, BUN 41 H, Creatinine 1.25, Estim Creat Clear Calc 56.89, Est GFR (MDRD) Af Amer 73, Est GFR (MDRD) Non-Af 60, BUN/Creatinine Ratio 32.8 H, Glucose 109 H, Calcium 8.9, Magnesium 2.6 12/24/20 06:12: APTT 79.4 H Microbiology: Microbiology 12/23/20 13:42 Mucosa - Nasopharyngeal Respiratory Panel (PCR) - Final 12/22/20 12:49 Nasal Secretion SARS-CoV-2 Antigen (Rapid) - Final D/C Instructions Discharge Diet: No restrictions Weight Bearing Status: Weight bearing as tolerated Call your doctor if you observe: Fever of 101 or Higher, Numbness or Tingling, Shortness of breath, Dizziness, Chest pain, Increased palpitations (irregular heartbeat) and Calf discomfort Please Follow Up With: Primary care provider When: Within the next two weeks. Meaningful Use Info Meaningful Use Diagnoses (Choose all that apply): None applicable and VTE VTE Anticoag overlap given w/in hospital stay or rx'd at id?: Yes Pt receive overlap for 5 days?: Yes Discharge Plan Admission Admit Date/Time: 12/22/20 14:40 Primary Reason for Your Visit: Shortness of breath Attending Provider: Cyrus Karimi Primary Care Provider: Ximena Rey NP Discharge Orders/Prescriptions Prescriptions: New Eliquis DVT-PE Treat 30D Start 5 mg (74 tabs) tablets,dose pack 5 mg PO BID Qty: 74 RF: 0 Continued albuterol sulfate [Ventolin HFA] 90 mcg/actuation HFA aerosol inhaler 2 puff inhalation Q4H PRN (Reason: asthma) 30 Days Qty: 8 RF: 3 acetaminophen 500 mg Capsule 1,000 mg PO TID PRN (Reason: Pain) RF: 0 Referrals / Follow Up: Ximena Rey NP, EXTRUDING PRESS ADJUSTER-C [Primary Care Provider] - Within 2 Weeks Disposition Disposition (needs filled in before D/C Order can be placed): Home, Self Care Documented by User: Dr. Cyrus Karimi MD 12/24/20 14:55 Providers Date of Admission: 12/22/20 Reason For Visit: BL PE / CP / FTT ADULT Medications at Discharge Home Medications albuterol sulfate 90 mcg/actuation aerosol inhaler 2 puff INHALATION Q4H PRN 30 Days #8 g 12/25/19 acetaminophen 1,000 mg PO TID PRN 12/22/20 apixaban [Eliquis DVT-PE Treat 30D Start] 5 mg PO BID #74 tab 12/24/20 Hospital Course Summary of Care Provided Hospital Course: This patient was seen in conjunction with Remy Edwards PA-C. I have independently interviewed and examined the patient and reviewed pertinent historical, laboratory, and other data. Please refer to Remy Edwards PA-C's note for details of this patient's presentation, findings, and recommendations. I have reviewed Remy Edwards PA-C's note and concur with documented alcides gs. 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 Venous duplex obtained demonstrated acute DVT involving the right lower extremities multiple vessels. CTA subsequently obtained demonstrated multiple segmental pulmonary embolism started on heparin admitted to a monitored bed for further management Assessment: 1. Acute venous thromboembolism with both PE as well as DVT 2. Seasonal allergies 3. Overweight with BMI of 39.3 4. Mild hyponatremia 5. Acute renal insufficiency Hospital course ; as documented above ABG / Lab / Microbiology Data Result Diagrams: 12/24/20 06:12 12/24/20 06:12 Discharge Plan Admission Admit Date/Time: 12/22/20 14:40 Primary Reason for Your Visit: Shortness of breath Attending Provider: Cyrus Karimi Primary Care Provider: Ximena Rey NP Discharge Orders/Prescriptions Prescriptions: New Eliquis DVT-PE Treat 30D Start 5 mg (74 tabs) tablets,dose pack 5 mg PO BID Qty: 74 RF: 0 Continued albuterol sulfate [Ventolin HFA] 90 mcg/actuation HFA aerosol inhaler 2 puff inhalation Q4H PRN (Reason: asthma) 30 Days Qty: 8 RF: 3 acetaminophen 500 mg Capsule 1,000 mg PO TID PRN (Reason: Pain) RF: 0 Referrals / Follow Up: Ximena Rey NP, EXTRUDING PRESS ADJUSTER-C [Primary Care Provider] - Within 2 Weeks Disposition Disposition (needs filled in before D/C Order can be placed): Home, Self Care Charges/Coding Visit Charges Inpatient E&M: 38074 Disch Hosp
== END 2020-12-24 13:08 | disposition home or self-care (01) | DRG 175 ==
LOC: ED 13:20 → PCU 15:16
PROVIDERS: Admitting Provider Family Medicine; Emergency Provider Student in an Organized Health Care Education/Training Program; PCP Nurse Practitioner; Visit Provider Internal Medicine
DX: I26.99 Other pulmonary embolism without acute cor pulmonale (principal); E43 Unspecified severe protein-calorie malnutrition; N17.9 Acute kidney failure, unspecified; E87.1 Hypo-osmolality and hyponatremia; I82.411 Acute embolism and thrombosis of right femoral vein; I82.431 Acute embolism and thrombosis of right popliteal vein; I82.441 Acute embolism and thrombosis of right tibial vein; I82.451 Acute embolism and thrombosis of right peroneal vein; R62.7 Adult failure to thrive; J30.2 Other seasonal allergic rhinitis; E66.3 Overweight; Z68.39 Body mass index [BMI] 39.0-39.9, adult; Z71.3 Dietary counseling and surveillance; Z79.899 Other long term (current) drug therapy; Z86.711 Personal history of pulmonary embolism; Z86.718 Personal history of other venous thrombosis and embolism; Z87.891 Personal history of nicotine dependence; Z82.49 Family history of ischemic heart disease and other diseases of the circulatory system
CPT/HCPCS: 36415; 71045; 71275; 80048; 80053; 80061; 83690; 83735; 83880; 84484; 85025; 85610; 85730; 87426; 87633; 87635; 93005; 93306; 93971; 97162; 97166; 97530; 97802; 99251; 99284; J7030; Q9957; Q9967; U0005; A4216; C8929; G0463; J2405; U0003

== ENCOUNTER 2021-02-10 18:24 | Inpatient (IN) | payer MEDICARE, SELFPAY ==
[2021-02-10 18:25] VITALS: BP 144/112; PULSE 111; RESP 20; TEMP 36.4; O2SAT 100; BMI 22.3
[2021-02-10 19:46] LABS: Absolute Neutrophil Count 6.2 X10^3/uL (2.0-7.7); Basophil# 0.07 X10^3/uL; Basophil% 0.9 % (0-1); Eosinophil# 0.07 X10^3/uL; Eosinophils% 0.9 % (0-5); Hematocrit 44.8 % (40-54); Hemoglobin 14.9 g/dL (13.0-16.5); Lymphocyte % 8.9 % (19-41); Mean Corp Hgb Conc 33.3 g/dL (32-36); Mean Corpuscular Hgb 28.2 pg (27.0-32.0); Mean Corpuscular Volume 84.7 fL (80-94); Mean Platelet Vol. 10.3 fl (6.2-12.0); Monocyte# 0.78 X10^3/uL; Monocyte% 9.9 % (0-10); NRBC Flagged by Analyzer 0 % (0-5); Neutrophil # 6.17 X10^3/uL (2.7-7.7); Neutrophil % 78.6 % (47-70); Platelet Count 250 K/mm3 (150-450); RBC Distribution Width CV 14.6 % (11.6-14.6); RBC Distribution Width SD 45.3 fl (35.1-43.9); Red Blood Count 5.29 M/mm3 (4.6-6.2); White Blood Count 7.9 K/mm3 (4.4-11.0)
[2021-02-10 19:59] LABS: Anion Gap 10 (5-15); BUN 58 mg/dL (7-18); BUN/Creat Ratio 26.4 RATIO (10-20); Calcium,Total 10.2 mg/dL (8.5-10.1); Chloride 96 mmol/L (98-107); EST Glomerular Filtration Rate 31 mL/min (>60); Est Glom Filt Rate - Afr Amer 38 mL/min (>60); Glucose 143 mg/dL (74-106); Potassium 4.4 mmol/L (3.5-5.1); Sodium Level 131 mmol/L (136-145)
--- NOTE | 2021-02-10 20:01 | CT_ITS ---
STUDY: CT ABDOMEN AND PELVIS WITHOUT CONTRAST REASON FOR EXAM: Male, 71 years old. Abdominal pain RADIATION DOSAGE (If Supplied By Facility): CTDIvol = ( 7.79 ) mGy, DLP = ( 399.14 ) mGycm TECHNIQUE: Transaxial images were obtained from the dome of the diaphragm to the symphysis pubis without oral contrast, and without intravenous contrast. Sagittal and coronal images were reconstructed. Individualized dose optimization techniques were used for this CT. COMPARISON: None. FINDINGS: The visualized lung bases are unremarkable. The visualized portions of the heart are within normal limits. Multiple poorly characterized liver lesions. Distended gallbladder. Normal extrahepatic biliary system. Normal spleen. Normal pancreas. Prominent lymph nodes are noted in the lilliana hepatis and retroperitoneum, the largest of which measures up to 1 cm in short axis dimension. Normal bilateral adrenal glands. Normal right kidney. Normal left kidney. Normal visualized stomach. Normal small intestine. Normal colon. The appendix is visualized and appears normal. There is diffuse atherosclerotic calcification of the abdominal aorta, without a demonstrated aneurysm. Normal inferior vena cava. Normal retroperitoneum. Normal urinary bladder. Normal visualized prostate gland. Normal abdominal wall. There are diffuse degenerative changes of the visualized lumbar spine. CT/Abdomen/Pelvis without Cont IMPRESSION: Multiple liver lesions are poorly characterized but highly concerning for malignancy. Further evaluation with liver mass protocol contrast-enhanced imaging is recommended. Distended gallbladder. Electronically Signed: Miguel Angel Ricardo MD at 21:21 EST Tel , Service support ,
--- NOTE | 2021-02-10 20:02 | EKG12_ITS ---
Test Reason : WEAKNESS Blood Pressure : / mmHG Vent. Rate : 073 BPM Atrial Rate : 073 BPM P-R Int : 156 ms QRS Dur : 080 ms QT Int : 340 ms P-R-T Axes : 023 007 207 degrees QTc Int : 374 ms Normal sinus rhythm ST & T wave abnormality, consider inferior ischemia ST & T wave abnormality, consider anterolateral ischemia Abnormal ECG Confirmed by SAM NGUYEN, ERUM ([id number]), film editor supervisor KEVIN DE LEON ([id number]) on 02/13/2021 6:38:05 AM Referred By: SHERYL Confirmed By:ERUM VARGAS MD
--- NOTE | 2021-02-10 20:04 | EDS_ITS ---
HPI History of Present Illness Chief Complaint: Weakness Informant: patient Onset/Context/Timing Onset: Month(s) Context: Gradual Onset Timing: Continuous Quality: Decreased appetite Location: Generalized Worsened by: Nothing Relieved by: Nothing Narrative Narrative: Patient presents with generalized weakness and anorexia that has been getting worse over the past 2 months. Patient saw his primary care nurse practitioner today who referred him to the emergency department for admission to the hospital. Patient states he has been unable to eat or drink anything over the past couple months. Patient then states that he is able to keep small sips of water down. Patient states she is also able to drink small amounts of chocolate milk. Patient states that anything else he eats or drinks he gets nauseated and vomits it back up. Patient states he has been feeling weaker over the past 2 months. Patient denies any chest pain. [facility] Medical History Bilateral pulmonary embolism Former tobacco use History of DVT (deep vein thrombosis) History of pulmonary embolus (PE) History of venous thromboembolism Pilonidal cyst Seasonal allergies Home Medications albuterol sulfate 90 mcg/actuation aerosol inhaler 2 puff INHALATION Q4H PRN 30 Days #8 g 12/25/19 [Rx Last Taken Unknown] acetaminophen 1,000 mg PO TID PRN 12/22/20 [History Last Taken 12/21/20] prednisone 5 mg tablet 5 mg PO DAILY #30 tab 01/05/21 [Rx Last Taken Unknown] promethazine 12.5 mg tablet 12.5 mg PO Q4H PRN #60 tab 01/05/21 [Rx Last Taken Unknown] warfarin 5 mg tablet 5 mg PO DAILY #90 tab 01/20/21 [Rx Last Taken Unknown] Allergy/AdvReac Type Severity Reaction Status Date / Time acetaminophen [From Vicodin] AdvReac Severe rash and Verified 12/22/20 10:37 itching hydrocodone [From Vicodin] AdvReac Severe rash and Verified 12/22/20 10:37 itching Family History Mother Heart disease Diabetes Father Heart disease Surgical History No significant past surgical history Social History household members: spouse Smoking Status: Former smoker how long ago did patient quit smoking: Quit 2 years prior, prior 1 ppd (higher remotely) since early teenager. alcohol intake: former substance use type: does not use ROS ROS ED Constitutional Constitutional ED: Denies chills or fever(s) Eyes Eyes: Denies blurry vision or change in vision ENT ENT ED: Denies rhinorrhea or sore throat Cardiovascular Cardiovascular: Denies chest pain or palpitations Respiratory/Chest Respiratory/Chest: Reports cough; Denies dyspnea Gastrointestinal Gastrointestinal: Reports abdominal pain, nausea and vomiting Genitourinary Genitourinary ED: Denies dysuria or hematuria Musculoskeletal Musculoskeletal: Denies back pain or neck pain Integumentary Denies abscess or rash Neurologic Neurologic: Denies headache(s) or weakness Allergic/Immunologic Allergic/Immunologic ED: Denies mouth swelling or urticaria EXAM Physical Exam Const Vital Signs: 02/10/21 18:25 02/10/21 20:16 02/10/21 22:39 Temperature 97.6 F L Temperature Source Temporal Pulse Rate 111 H 65 Respiratory Rate 20 H 12 Respiratory Effort Normal Respiratory Pattern Normal Blood Pressure 144/112 H Blood Pressure Mean 122 Pulse Ox 100 98 Oxygen Delivery Method Room Air Room Air Positive cachectic General Appearance ED: cachectic Nutritional Appearance: cachectic HEENT Reports dry mucous membranes Mouth ED: Yes dry mucous membranes Mouth: dry mucous membranes Eyes PERRL and EOMs intact bilaterally Neck supple and no JVD Resp normal respiratory effort and clear to auscultation bilaterally Cardio regular rhythm Rate: tachycardic GI normal to inspection, nondistended, normoactive bowel sounds and non-tender Palpation: soft Neuro oriented x3, CN's II-XII intact bilaterally and no sensory deficits noted Sensorium / Orientation: alert Motor Exam: strength 5/5 throughout Psych mental status grossly normal MDM MDM MDM Narrative Medical decision making narrative: Patient was given IV fluids here. EKG was obtained. On my interpretation, it showed a normal sinus rhythm with a rate of 73. NV interval, QRS interval, and QTc intervals were all normal. [place] was normal. There are nonspecific ST-T wave changes. CBC was within normal limits. Basic metabolic profile showed a BUN of 58 and creatinine of 2.2. These were increased from previous results. Hepatic profile was obtained. Alk phos was slightly elevated at 130. AST and ALT were normal. Portable 1 view chest x-ray was obtained. On my interpretation, lung mcarthur are clear. There is normal cardiac silhouette. Bony thorax is normal. There is no acute process noted. Radiologist also interpreted the x-ray and agrees. CT scan of the abdomen and pelvis was obtained. There are multiple liver lesions concerning for maligna ncy. Patient was advised of his findings. Case was discussed with the hospitalist. He will admit the patient. Patient and family understood and were agreeable with the plan. All questions were answered. Lab Data Attestation: I reviewed the patient's lab results. Labs: Laboratory Results - last 24 hr 02/10/21 02/10/21 02/10/21 19:35 19:35 19:35 WBC 7.9 RBC 5.29 Hgb 14.9 Hct 44.8 MCV 84.7 MCH 28.2 MCHC 33.3 RDW Std Deviation 45.3 H RDW Coeff of Maciej 14.6 Plt Count 250 MPV 10.3 Immature Gran % (Auto) 0.800 Neut % (Auto) 78.6 H Lymph % (Auto) 8.9 L [place] % (Auto) 9.9 Eos % (Auto) 0.9 Baso % (Auto) 0.9 Absolute Neuts (auto) 6.2 Absolute Lymphs (auto) 0.70 L Nucleated RBC % 0 Sodium 131 L Potassium 4.4 Chloride 96 L Carbon Dioxide 25.0 Anion Gap 10 BUN 58 H Creatinine 2.20 H Estim Creat Clear Calc 30.70 Est GFR (MDRD) Af Amer 38 L Est GFR (MDRD) Non-Af 31 L BUN/Creatinine Ratio 26.4 H Glucose 143 H Calcium 10.2 H Total Bilirubin 0.40 Direct Bilirubin 0.19 AST 32 ALT 24 Alkaline Phosphatase 130 H Total Protein 8.7 H Albumin 3.4 Globulin 5.3 H Radiography Diagnostic Testing: Clinical Impression(s) from Imaging Studies Abdomen/Pelvis CT 02/10/21 20:01 IMPRESSION: Multiple liver lesions are poorly characterized but highly concerning for malignancy. Further evaluation with liver mass protocol contrast-enhanced imaging is recommended. Distended gallbladder. Electronically Signed: Miguel Angel Ricardo MD at 21:21 EST Tel , Service support , Chest X-Ray 02/10/21 20:30 IMPRESSION: Normal x-ray examination of the chest. Electronically Signed: Miguel Angel Ricardo MD at 21:25 EST Tel , Service support , EKG Initial EKG: Attestation: I personally reviewed and interpreted this EKG as follows: Interpretation: Sinus Rhythm (73) and Non-Specific ST Changes Prior EKG tracings: available for review Prior: Unchanged (12/24/2020) Treatment and Re-Evaluation Vital Sign Attestation:: Vital signs were reviewed prior to admission. They are stable. Discharge Plan Triage Chief Complaint: Weakness ED Provider: Mehul Soils Dx/Rx/DC Orders Clinical Impression: Acute kidney injury, Mass of multiple sites of liver Prescriptions: No Action albuterol sulfate [Ventolin HFA] 90 mcg/actuation HFA aerosol inhaler 2 puff inhalation Q4H PRN (Reason: asthma) 30 Days Qty: 8 RF: 3 prednisone 5 mg tablet 5 mg PO DAILY Qty: 30 RF: 0 promethazine 12.5 mg tablet 12.5 mg PO Q4H PRN (Reason: nausea and vomiting) Qty: 60 RF: 12 acetaminophen 500 mg Capsule 1,000 mg PO TID PRN (Reason: Pain) RF: 0 warfarin 5 mg tablet 5 mg PO DAILY Qty: 90 RF: 12 Primary Care Provider: Ximena Rey NP Referrals: Ximena Rey NP, [employer]ES SALES REPRESENTATIVE-C [Primary Care Provider] - Disposition Disposition: Acute Care Hospital [facility]
[2021-02-10] MEDS: 0.9% Normal Saline 1,000 ML 1000 ML IV (20:10)
--- NOTE | 2021-02-10 20:30 | RAD_ITS ---
STUDY: X-RAY CHEST REASON FOR EXAM: Male, 71 years old. Cough TECHNIQUE: Single frontal view of the chest. COMPARISON: 12/22/20. FINDINGS: The lungs are clear and expanded. There is no demonstrated pleural abnormality. Normal size heart. Normal mediastinum and landon. Normal visualized pulmonary arteries. Normal visualized aortic arch and descending thoracic aorta. Normal visualized thoracic spine. Normal visualized ribs, clavicles, and shoulders. There is no demonstrated abnormality of the visualized soft tissue structures of the upper abdomen. RAD/Chest 1 View (Portable) IMPRESSION: Normal x-ray examination of the chest. Electronically Signed: Miguel Angel Ricardo MD at 21:25 EST Tel , Service support ,
[2021-02-10 22:38] LABS: AST(SGOT) 32 U/L (15-37); Alanine Aminotransfer ALT/SGPT 24 U/L (16-61); Albumin, Serum 3.4 g/dL (3.2-5.0); Alkaline Phosphatase 130 U/L (45-117); Bilirubin, Direct 0.19 mg/dL (0.00-0.30); Globulin 5.3 g/dL (2.2-4.2); Protein, Total 8.7 g/dL (6.4-8.2)
[2021-02-10 22:39] VITALS: PULSE 65; RESP 12; O2SAT 98
[2021-02-10] MEDS: Ondansetron 4 MG/2 ML Vial IV (22:58)
--- NOTE | 2021-02-10 23:08 | HP.PCM.HOS_ITS ---
HPI - General General Date of Admission: 02/10/21 Date of Service: 02/10/21 Chief Complaint: Anorexia HPI Narrative LUIS MANUEL ZACARIAS, is a 71 M with a significant history of DVT and PE who presents to the emergency department with 6-week history of persistent anorexia. Patient is so anorexic that he is unable to eat any food except certain chocolate milk and sips of water. He throws up with other food. Also patient reports weakness to the point that he cannot stand. Also he reports extensive weight loss. He reported that he was about 325 pounds but now is about 160 pounds. Of note patient was admitted to the hospital on 12/22/2020 for bilateral pulmonary embolism; adult failure to thrive and JONO. ON LICENSE OF [facility] Medical History Bilateral pulmonary embolism Former tobacco use History of DVT (deep vein thrombosis) History of pulmonary embolus (PE) History of venous thromboembolism Pilonidal cyst Seasonal allergies Home Medications albuterol sulfate 90 mcg/actuation aerosol inhaler 2 puff INHALATION Q4H PRN 30 Days #8 g 12/25/19 [Rx Last Taken Unknown] acetaminophen 1,000 mg PO TID PRN 12/22/20 [History Last Taken 12/21/20] prednisone 5 mg tablet 5 mg PO DAILY #30 tab 01/05/21 [Rx Last Taken Unknown] promethazine 12.5 mg tablet 12.5 mg PO Q4H PRN #60 tab 01/05/21 [Rx Last Taken Unknown] warfarin 5 mg tablet 5 mg PO DAILY #90 tab 01/20/21 [Rx Last Taken Unknown] Allergy/AdvReac Type Severity Reaction Status Date / Time acetaminophen [From Vicodin] AdvReac Severe rash and Verified 12/22/20 10:37 itching hydrocodone [From Vicodin] AdvReac Severe rash and Verified 12/22/20 10:37 itching Family History Mother Heart disease Diabetes Father Heart disease Surgical History No significant past surgical history Social History household members: spouse Smoking Status: Former smoker how long ago did patient quit smoking: Quit 2 years prior, prior 1 ppd (higher remotely) since early teenager. alcohol intake: former substance use type: does not use ROS ROS Narrative Constitutional: Reports anorexia; and change in weight. Denies fever, chills, Eyes: Denies blurry vision, change in eye color, change in vision, discharge from eye(s), double vision, erythema, eye pain, loss of vision or other HEENT: Denies abnormal hearing, dysphagia, ear pain, epistaxis, headache(s), hearing loss, nasal congestion, nasal discharge, post nasal drip, sinus pressure, sore throat or other Cardiovascular: Denies chest pain or palpitations. Denies dyspnea on exertion, orthopnea and paroxysmal nocturnal dyspnea Respiratory/Chest: Denies cough, excessive phlegm production, shortness of breath with exertion and wheezing Gastrointestinal: Reports nausea and vomiting. Denies abdominal pain, coffee ground emesis, constipation, diarrhea, dyspepsia, hematemesis, hematochezia, loose stools, vomiting or other Genitourinary: Denies burning urination, difficulty urinating, dysuria, hematuria, nocturia, urinary frequency, urinary hesitancy, urinary incontinence, urinary urgency or other Musculoskeletal: Denies arthralgias, back pain, joint pain, joint stiffness, joint swelling, myalgias, neck pain or other Neurologic: Denies abnormal gait, abnormal speech, confusion, disequilibrium, dizziness, focal weakness, headache(s), numbness, paresthesias, seizure-like activity, seizures, syncope, tingling, tremor(s) or other Psychiatric: Denies anxiety, depression, homicidal ideation, suicidal ideation or other Endocrinology: Denies change in body appearance, cold intolerance, excessive sweating, heat intolerance, polydipsia, polyuria or other Hematologic/Lymphatic: Denies anemia, easy bleeding, easy bruising, lymphadenopathy or other Integumentary: Denies rashes Allergic/Immunologic: Denies rhinitis, hives, eczema, asthma or other Vital Signs Vital Signs Vital Signs: 02/10/21 18:25 02/10/21 20:16 02/10/21 22:39 Temperature 97.6 F L Temperature Source Temporal Pulse Rate 111 H 65 Respiratory Rate 20 H 12 Respiratory Effort Normal Respiratory Pattern Normal Blood Pressure 144/112 H Blood Pressure Mean 122 Pulse Ox 100 98 Oxygen Delivery Method Room Air Room Air Weight Weight: 72.575 kg Body Mass Index (BMI) 22.3 Physical Exam Narrative Physical exam: General: Well-nourished, well-developed. Head: Normocephalic, atraumatic, no tenderness Eyes: PERRLA, EOMI ENT, no trauma, moist mucous membranes, no rhinorrhea Neck: Nontender, full range of motion, no spinal tenderness, deformities, step- off CVS: Regular rate and rhythm. S1-S2 present. No murmur, gallop or rub. Respiratory : clear to auscultation bilaterally, chest wall nontender, no wheezing Abdomen: Soft, nontender, nondistended, normal bowel sounds, no masses : Deferred Back: Nontender, no CVA tenderness, no midline spinal tenderness, deformities, step-offs Extremities: Nontender full range of motion, no trauma Skin: Normal color, no trauma, abrasions Neuro: Alert, oriented, cranial nerves II through XII grossly intact. Psychiatry: Normal mood. Normal affect. Not depressed. Not anxious. Results Lab / Micro Data Result Diagrams: 02/10/21 19:35 02/10/21 19:35 Labs: Laboratory Results - last 24 hr 02/10/21 19:35: WBC 7.9, RBC 5.29, Hgb 14.9, Hct 44.8, MCV 84.7, MCH 28.2, MCHC 33.3, RDW Std Deviation 45.3 H, RDW Coeff of Maciej 14.6, Plt Count 250, MPV 10.3, Immature Gran % (Auto) 0.800, Neut % (Auto) 78.6 H, Lymph % (Auto) 8.9 L, [place] % (Auto) 9.9, Eos % (Auto) 0.9, Baso % (Auto) 0.9, Absolute Neuts (auto) 6.2, Absolute Lymphs (auto) 0.70 L, Nucleated RBC % 0 02/10/21 19:35: Sodium 131 L, Potassium 4.4, Chloride 96 L, Carbon Dioxide 25.0, Anion Gap 10, BUN 58 H, Creatinine 2.20 H, Estim Creat Clear Calc 30.70, Est GFR (MDRD) Af Amer 38 L, Est GFR (MDRD) Non-Af 31 L, BUN/Creatinine Ratio 26.4 H, Glucose 143 H, Calcium 10.2 H 02/10/21 19:35: Total Bilirubin 0.40, Direct Bilirubin 0.19, AST 32, ALT 24, Alkaline Phosphatase 130 H, Total Protein 8.7 H, Albumin 3.4, Globulin 5.3 H Radiology Impression Abdomen/Pelvis CT 02/10/21 20:01 IMPRESSION: Multiple liver lesions are poorly characterized but highly concerning for malignancy. Further evaluation with liver mass protocol contrast-enhanced imaging is recommended. Distended gallbladder. Electronically Signed: Miguel Angle Ricardo MD at 21:21 EST Tel , Service support , Chest X-Ray 02/10/21 20:30 IMPRESSION: Normal x-ray examination of the chest. Electronically Signed: Miguel Angel Ricardo MD at 21:25 EST Tel , Service support , Assessment & Plan Assessment/Plan (1) Acute kidney injury: (2) Mass of multiple sites of liver: (3) Failure to thrive in adult: (4) Generalized weakness: PLAN: JONO Creatinine on presentation was 2.20. Review of previous records shows baseline creatinine around 1.2. BUN is 58. BUN over creatinine 26.4. Likely dehydration from poor intake and vomiting. Gentle IV hydration ordered. Chest x-ray showed no acute cardiopulmonary process and I agree with radiologist interpretation above. CT of abdomen and pelvis independently interpreted showed multiple liver lesions; and I agree with radiologist interpretation. Failure to thrive in adult/mass of multiple side of liver/generalized weakness With symptomatology of anorexia; weakness and weight loss coupled with Imaging finding of multiple liver lesions most likely patient has a carcinoma. With JONO will hydrate patient. When kidney function improves consider MRI liver protocol as recommended by radiology; and further discussion/referral to oncology as necessary. PT and OT to work with patient Hyponatremia Sodium of 131. Chloride of 96. Likely secondary to hypovolemia from dehydration. Gentle IV hydration as above. Trend BMP. History of DVT and PE Continue home Coumadin. Trend PT/INR. DVT prophylaxis: Continue Coumadin as above. Charges/Coding Visit Charges Inpatient E&M: 41331 Init Hosp L3
[2021-02-10 23:13] VITALS: BP 156/93; PULSE 66; RESP 16; TEMP 36.4; O2SAT 99
--- NOTE | 2021-02-10 23:54 | PCS.PANDOC ---
PANDEMIC DOCUMENTATION INITIATED: Date: 02/10/21 Time: 5279
[2021-02-10 23:55] VITALS: BP 164/87; PULSE 60; RESP 16; TEMP 36.9; O2SAT 100
[2021-02-10 23:56] VITALS: BMI 24.0
[2021-02-11] VITALS (10 sets, daily range): BP systolic 138–160; BP diastolic 76–94; PULSE 55–63; RESP 16–18; TEMP 36.4–36.9; O2SAT 97–100
[2021-02-11] MEDS: 0.9% Normal Saline 1,000 ML 75 ML IV ×2 (00:38→17:25)
[2021-02-11] MEDS: Ondansetron 4 MG/2 ML Vial IV ×3 (05:14→23:16)
[2021-02-11 07:48] LABS: Anion Gap 9 (5-15); BUN 55 mg/dL (7-18); Calcium,Total 8.8 mg/dL (8.5-10.1); Chloride 101 mmol/L (98-107); Creatinine, Serum 1.62 mg/dL (0.70-1.30); EST Glomerular Filtration Rate 45 mL/min (>60); Est Glom Filt Rate - Afr Amer 54 mL/min (>60); Estimated Creatinine Clearance 43.25 ml/min; Glucose 86 mg/dL (74-106); Potassium 4.1 mmol/L (3.5-5.1); Sodium Level 135 mmol/L (136-145)
[2021-02-11 09:16] LABS: Prothrombin Time (Protime)PT. > 120.0 SECONDS (11.7-14.9)
[2021-02-11 09:19] LABS: International Normalized Ratio > 19.5
--- NOTE | 2021-02-11 09:50 | PCM.PN.HOSP ---
Subjective Subjective Feels little bit better today with the IV fluids. Kidney function is improving however INR did come back at 19.5 and this was verified by lab. Objective Data Objective Data Vital Signs: Vital Signs Temp Pulse Resp BP Pulse Ox 97.7 F L 55 L 16 144/89 H 98 02/11/21 05:13 02/11/21 05:13 02/11/21 05:13 02/11/21 05:13 02/11/21 08:16 Oxygen Delivery Method Room Air Weight: 172 lb 2 oz Body Mass Index (BMI) 24.0 Intake & Output: Intake and Output for Last 24 Hours 02/10/21 02/11/21 02/12/21 03:59 03:59 03:59 Intake Total 1000 / 1000 Output Total 0 / 0 Balance 1000 / 1000 0 / 0 Lab / Micro Data Result Diagrams: 02/10/21 19:35 02/11/21 06:31 Labs: Laboratory Results - last 24 hr 02/10/21 19:35: WBC 7.9, RBC 5.29, Hgb 14.9, Hct 44.8, MCV 84.7, MCH 28.2, MCHC 33.3, RDW Std Deviation 45.3 H, RDW Coeff of Maciej 14.6, Plt Count 250, MPV 10.3, Immature Gran % (Auto) 0.800, Neut % (Auto) 78.6 H, Lymph % (Auto) 8.9 L, [place] % (Auto) 9.9, Eos % (Auto) 0.9, Baso % (Auto) 0.9, Absolute Neuts (auto) 6.2, Absolute Lymphs (auto) 0.70 L, Nucleated RBC % 0 02/10/21 19:35: Sodium 131 L, Potassium 4.4, Chloride 96 L, Carbon Dioxide 25.0, Anion Gap 10, BUN 58 H, Creatinine 2.20 H, Estim Creat Clear Calc 30.70, Est GFR (MDRD) Af Amer 38 L, Est GFR (MDRD) Non-Af 31 L, BUN/Creatinine Ratio 26.4 H, Glucose 143 H, Calcium 10.2 H 02/10/21 19:35: Total Bilirubin 0.40, Direct Bilirubin 0.19, AST 32, ALT 24, Alkaline Phosphatase 130 H, Total Protein 8.7 H, Albumin 3.4, Globulin 5.3 H 02/11/21 06:31: PT > 120.0 H, INR > 19.5 H* 02/11/21 06:31: Sodium 135 L, Potassium 4.1, Chloride 101, Carbon Dioxide 25.0, Anion Gap 9, BUN 55 H, Creatinine 1.62 H, Estim Creat Clear Calc 43.25, Est GFR (MDRD) Af Amer 54 L, Est GFR (MDRD) Non-Af 45 L, BUN/Creatinine Ratio 34.0 H, Glucose 86, Calcium 8.8 Radiography Diagnostic Testing: Radiology Impression Abdomen/Pelvis CT 02/10/21 20:01 IMPRESSION: Multiple liver lesions are poorly characterized but highly concerning for malignancy. Further evaluation with liver mass protocol contrast-enhanced imaging is recommended. Distended gallbladder. Electronically Signed: Miguel Angel Ricardo MD at 21:21 EST Tel , Service support , Chest X-Ray 02/10/21 20:30 IMPRESSION: Normal x-ray examination of the chest. Electronically Signed: Miguel Angel Ricardo MD at 21:25 EST Tel , Service support , Physical Exam Const alert, oriented x3 and no apparent distress General Appearance: cooperative HEENT normocephalic and moist oral mucous membranes Eyes PERRL, EOMs intact bilaterally and conjunctivae normal Neck supple and no JVD Resp normal respiratory effort, no retractions, no use of accessory muscles and clear to auscultation bilaterally Auscultation: Negative for crackles, rales, rhonchi or wheezes Cardio regular rate, regular rhythm, S1 normal heart sound, S2 normal heart sound and no murmurs GI soft to palpation, non-tender and non-distended; Negative for hepatosplenomegaly Extremity no clubbing, cyanosis or edema Skin no rashes or lesions noted Neuro no focal motor deficits and no sensory deficits noted Psych affect normal Appearance: appropriate Assessment & Plan Assessment/Plan (1) Acute kidney injury: (2) Mass of multiple sites of liver: (3) Failure to thrive in adult: (4) Generalized weakness: PLAN: 1. Severe protein calorie malnutrition secondary to anorexia/JONO/coagulopathy/possible metastatic cancer -He is down to about 170 pounds and used to be 325 pounds -INR is now 19.5, he is on Coumadin at baseline for history of DVT and PE which was found about a month ago ?The INR will be reversed with vitamin K given the fact that he is on Coumadin and likely also has a component of malnutrition leading to his elevated INR and will also give him FFP and recheck INR in the morning ?We will consult gastroenterology for evaluation of the liver lesions, he states that he has never had a colonoscopy and given the appearance of metastatic lesions in the liver, may benefit from having a colonoscopy to evaluate for possible primary lesion ?Renal function is improving creatinine is 1.62 today down from 2.2 on admission 2. History of DVT and PE ?Given the lesions in the liver it is possible that the previous PE and DVT was secondary to a hypercoagulable state from cancer ?Given the elevation in INR, will hold Coumadin and will try to reverse the INR DVT: Supratherapeutic INR Charges/Coding Visit Charges Inpatient E&M: 11389 Subs Hosp L2
--- NOTE | 2021-02-11 10:50 | CASEMGMT ---
RN DEEP Face to Face with patient for initial transition planning/care coordination assessment. RN CM introduced self and role at [facility]. Patient lying in bed, alert and oriented. Patient willing to participate in assessment and is able to answer all questions appropriately. Care providers, pharmacy, and demographics verified. Patient wishes to discharge home, but is willing to go to SNF for additional rehab if needed. Will monitor progress with therapy. Patient states he has no further needs or concerns at this time. CM to follow for discharge planning needs that may arise. PCP: Candido Specialists: none Preferred Pharmacy: [facility] Insurance: [facility] Prescription Benefit: none Living Will/HPOA: yes, Chelo Montalvo LNOK: , daughter Living Arrangements: patient lives with in a 2 story home with bed and bath on first floor. Patient states and daughter assists with ADLs. Transportation: and daughter DME/HHC: patient states he has shower chair, raised toilet seat, cane, walker, and grab bars. Patient denies previous HHC or SNF Disposition Plan: TBD, HHC vs SNF pending progress with therapy. Josey ALLRED, RN, CM
[2021-02-11 10:57] LABS: Bacteria 0 SEEN /hpf (None Seen)
[2021-02-11 10:59] LABS: Color, Urine Yellow (Yellow); Glucose, Dipstick Normal (Normal); Ketone-Dipstick 15 mg/dl (Negative); Leukocyte Esterase-Dipstick Negative /ul (Negative); Nitrite-Dipstick Negative (Negative); Occult Blood-Urine 10 /ul (Negative); Protein-Dipstick 15 mg/dl (Negative); Specific Gravity, Urine 1.015 (1.002-1.030); Urine Bilirubin Dipstick Negative (Negative); Urine Clarity Clear (Clear); Urine Urobilinogen Normal (Normal)
[2021-02-11 11:05] LABS: Hyaline Cast 0-5 SEEN /lpf (0-5); Mucous, Urine 1+ /hpf (<or=2+); Red Blood Cells-Urine 0-5 SEEN /hpf (0-5); Squamous Epithelial Cells - UA 0-5 SEEN /hpf (0-5); White Blood Cells 0-5 SEEN /hpf (0-5)
[2021-02-11] MEDS: 0.9% Saline Lock 10 ML Syringe IV ×2 (11:07→17:25)
[2021-02-11] MEDS: proCHLORPERazine 10 MG/2 ML Vial 5 MG IV (17:26)
--- NOTE | 2021-02-11 18:47 | CON.PCM.GI_ITS ---
HPI Consult Data Date of Consult: 02/11/21 HPI Narrative HPI Narrative: LUIS MANUEL ZACARIAS, is a 71 M who presents who presented to the emergency room on 12/22/2020 with weakness fatigue malaise and progressive weight loss. Patient says he has lost approximately 60 pounds over the last several months unintentionally. He states that he cannot eat anything due to the fact that nothing tastes right. In the ED he was diagnosed with bilateral PEs and placed on anticoagulation. He was also discovered to have renal failure mild hypoglycemia. He was discharged home on anticoagulation and came back to the hospital for worsening lethargy and fatigue. He got a CT scan abdomen pelvis and it showed multiple liver lesions. He has never had a colonoscopy. He has no history of gastroesophageal reflux disease. He denies any blood in his stools. He does have a history of tobacco usage resulting in asthma. [facility] Medical History (Updated 02/11/21 @ 00:07 by Jennifer Painting) Asthma Bilateral pulmonary embolism Former tobacco use History of DVT (deep vein thrombosis) History of pulmonary embolus (PE) History of venous thromboembolism Pilonidal cyst Seasonal allergies Home Medications albuterol sulfate 90 mcg/actuation aerosol inhaler 2 puff INHALATION Q4H PRN 30 Days #8 g 12/25/19 [Rx Last Taken Unknown] warfarin 5 mg tablet 5 mg PO DAILY #90 tab 01/20/21 [Rx Last Taken Unknown] Allergy/AdvReac Type Severity Reaction Status Date / Time acetaminophen [From Vicodin] AdvReac Severe rash and Verified 12/22/20 10:37 itching hydrocodone [From Vicodin] AdvReac Severe rash and Verified 12/22/20 10:37 itching Family History Mother Heart disease Diabetes Father Heart disease Surgical History No significant past surgical history Social History household members: spouse Smoking Status: Former smoker how long ago did patient quit smoking: Quit 2 years prior, prior 1 ppd (higher remotely) since early teenager. alcohol intake: former substance use type: does not use ROS Review of Systems ROS Unobtainable: other Constitutional Constitutional: Denies fatigue, fever(s), poor appetite, weight gain or weight loss ENT HEENT: Denies mouth lesions Cardiovascular Cardiovascular: Denies abdominal bloating, abdominal edema or abdominal pain Respiratory/Chest Respiratory/Chest: Denies change in mental status, change in phlegm color, chest congestion or chest tightness Gastrointestinal Gastrointestinal: Denies belching, bloating, change in bowel habits, change in stool character, chewing difficulty, coffee ground emesis, constipation, cramping, diarrhea, dyspepsia, dysphagia, early satiety, excessive flatus, fecal incontinence, heartburn, hematemesis, hematochezia, hemorrhoids, loose stools, melena, nausea, odynophagia, rectal bleeding, tenesmus, vomiting or weight changes Genitourinary Genitourinary: Denies abdominal discomfort, burning urination or itching Musculoskeletal Musculoskeletal: Reports as per HPI; Denies muscle weakness or myalgias Integumentary Integumentary: Denies jaundice Neurologic Neurologic: Denies lack of coordination or weakness Psychiatric Psychiatric: Denies confusion, depression, memory loss, mood swings, paranoia or suicidal ideation Endocrine Endocrinology: Denies systems reviewed and no addt'l complaints, except as documented Hematologic/Lymphatic Hematologic/Lymphatic: Denies anemia, easy bleeding, easy bruising or lymphadenopathy Allergic/Immunologic Allergic/Immunologic: Denies systems reviewed and no addt'l complaints, except as documented Physical Exam Const alert General Appearance: cooperative Orientation / Consciousness: oriented to person HEENT hearing grossly normal bilaterally Head and Scalp: normal to inspection Face and Sinus: face symmetric Nose: external nose normal Mouth: oral and palatal mucosa normal Eyes conjunctivae normal General Eye: normal appearance of both eyes Neck full ROM General: normal visual inspection Lymph Lymphatic: no lymphadenopathy noted Chest inspection of chest normal and palpation of chest normal Chest: symmetrical chest wall rise Resp normal respiratory effort Effort and Inspection: able to speak in complete sentences Cardio regular rate GI non-distended Percussion: normal to percussion Rectal Exam: deferred Neuro Speech: speech normal Gait (Neuro): normal gait Medical Records Data Medical Nutrition Assessment Dietitian: Malnutrition Criteria Met Start: 02/11/21 14:13 Freq: Status: Active Protocol: Document 02/11/21 14:20 BP (Rec: 02/11/21 14:22 BP [id number]) Nutrition Malnutrition Evidence of Malnutrition Exists Yes Malnutrition (severe): Chronic Evidenced By Suboptimal Energy Intake ( Severe),Weight Loss (Severe), Physical Changes (Severe) Clinical Problem Chronic Disease or Condition Related Malnutrition Etiology Severe malnutrition in the context of chronic illness as evidenced by inadequate oral intake and altered GI function Signs/Symptoms as evidenced by pt report poor oral intake x ~ 2 months with anorexia x 6 weeks and consuming mainly fluids, experiencing nausea & episodes of vomiting daily, unintentional wt loss of 52.9 lbs/23% x ~2 months (severe), signs/symptoms of severe muscle/fat wasting. Status Active Problem Recommendation Dietitian Recommendations/Changes 1.) As unlikely that patient will meet estimated nutrition needs via PO diet recommend consideration of Enteral Nutrition support if in line with patient and family wishes . If unlikely to tolerate EN given nausea/vomiting then recommend consideration of parenteral nutrition support. 2.) As pt medically able rec LIONEL Regular with fortified foods at meals. 3.) Will discontinue ONS per pt request as dislikes. Lab / Micro Data Result Diagrams: 02/10/21 19:35 02/11/21 06:31 Labs: Laboratory Results - last 24 hr 02/10/21 19:35: WBC 7.9, RBC 5.29, Hgb 14.9, Hct 44.8, MCV 84.7, MCH 28.2, MCHC 33.3, RDW Std Deviation 45.3 H, RDW Coeff of Maciej 14.6, Plt Count 250, MPV 10.3, Immature Gran % (Auto) 0.800, Neut % (Auto) 78.6 H, Lymph % (Auto) 8.9 L, [place] % (Auto) 9.9, Eos % (Auto) 0.9, Baso % (Auto) 0.9, Absolute Neuts (auto) 6.2, Absolute Lymphs (auto) 0.70 L, Nucleated RBC % 0 02/10/21 19:35: Sodium 131 L, Potassium 4.4, Chloride 96 L, Carbon Dioxide 25.0, Anion Gap 10, BUN 58 H, Creatinine 2.20 H, Estim Creat Clear Calc 30.70, Est GFR (MDRD) Af Amer 38 L, Est GFR (MDRD) Non-Af 31 L, BUN/Creatinine Ratio 26.4 H, Glucose 143 H, Calcium 10.2 H 02/10/21 19:35: Total Bilirubin 0.40, Direct Bilirubin 0.19, AST 32, ALT 24, Alkaline Phosphatase 130 H, Total Protein 8.7 H, Albumin 3.4, Globulin 5.3 H 02/11/21 06:31: PT > 120.0 H, INR > 19.5 H* 02/11/21 06:31: Sodium 135 L, Potassium 4.1, Chloride 101, Carbon Dioxide 25.0, Anion Gap 9, BUN 55 H, Creatinine 1.62 H, Estim Creat Clear Calc 43.25, Est GFR (MDRD) Af Amer 54 L, Est GFR (MDRD) Non-Af 45 L, BUN/Creatinine Ratio 34.0 H, Glucose 86, Calcium 8.8 02/11/21 10:19: Blood Type O NEGATIVE 02/11/21 10:45: Urine Color Yellow, Urine Clarity Clear, Urine pH 5.0, Ur Specific [place] 1.015, Urine Protein 15 H, Urine Glucose (UA) Normal, Urine Ketones 15 H, Urine Occult Blood 10 H, Urine Nitrite Negative, Urine Bilirubin Negative, Urine Urobilinogen Normal, Ur Leukocyte Esterase Negative, Urine RBC 0-5 SEEN, Urine WBC 0-5 SEEN, Ur Squamous Epith Cells 0-5 SEEN, Urine Bacteria 0 SEEN, Hyaline Casts 0-5 SEEN, Urine Mucus 1+ Radiology Impression Abdomen/Pelvis CT 02/10/21 20:01 IMPRESSION: Multiple liver lesions are poorly characterized but highly concerning for malignancy. Further evaluation with liver mass protocol contrast-enhanced imaging is recommended. Distended gallbladder. Electronically Signed: Miguel Angel Ricardo MD at 21:21 EST Tel , Service support , Chest X-Ray 02/10/21 20:30 IMPRESSION: Normal x-ray examination of the chest. Electronically Signed: Miguel Angel Ricardo MD at 21:25 EST Tel , Service support , Assessment & Plan Assessment/Plan (1) Pulmonary embolism: PLAN: Possibly secondary to hypercoagulable state associated with malignancy. He also could possibly have an underlying thrombo embolic disorder. (2) Mass of multiple sites of liver: PLAN: Different diagnosis for metastasis to liver does include colon cancer, esophageal cancer, lymphoma, hypernephroma, lung cancer. He should undergo EGD and colonoscopy to evaluate his upper lower GI tract. Charges/Coding Visit Charges Inpatient E&M: 89677 Init Hosp L3
[2021-02-11 20:44] LABS: International Normalized Ratio 1.5; Prothrombin Time (Protime)PT. 17.4 SECONDS (11.7-14.9)
[2021-02-12] VITALS (10 sets, daily range): BP systolic 108–167; BP diastolic 62–89; PULSE 63–90; RESP 16–20; TEMP 36.2–36.9; O2SAT 96–100
--- NOTE | 2021-02-12 | IMM_PTH ---
PATIENT: LUIS MANUEL ZACARIAS LOC: MS3 U#:[id number] AGE/SX: 71/M ROOM: [facility] [place] RE02/10/[address]: Dr. Alec Vazquez DO : 1950 BED: 1 DIS: 02/16/2021 SPEC #: [id number] RECD: 02/16/21 09:50 STATUS: JANE REQ #: [id number] BENNETT: 02/12/21 00:[address]: Casey Alejandro DEPT: IMMUNOHISTOCHEMISTRY RECD BY: Jose Daniel Quiñonez ENTERED: 02/16/21 09:52 SP TYPE: IMMUNO OTHR DR: MD Dr. Alec Todd DO Dr. Rahsaan Friend, DO Dora Richardson, VAULT ATTENDANT-C Tissues: Esophageal mucous membrane Procedures: MLH-1 (add) MSH6 (add) Anti-PMS2 (add) HER2 SAVANAH (add) KI-67 (add) P53 (add) MSH2 (initial) Comments: @ Ordering doctor for MLH1. edited from to @ by TRISHYTMAYA at 02/16/21 0952 @ Ordering doctor for MSH6. edited from to @ by LEILA at 02/16/21 0952 @ Ordering doctor for PMS2. edited from to @ by LEILA at 02/16/21 0952 @ Ordering doctor for HER2. edited from to @ by LEIAL at 02/16/21 0952 @ Ordering doctor for KI67. edited from to @ by LEILA at 02/16/21 0952 @ Ordering doctor for P53. edited from to @ by CCRYTZER at 02/16/21 0952 @ Ordering doctor for MSH2 edited from to @ by CCRYTZER at 02/16/21 0952 @ Submitting doctor edited from to @ by CCRYTZER at 02/16/21 0952 @ Specimen number changed from [id number] to [id number] @ on 02/16/21 at 0955 by CCRYTZER. PHYSICIAN & [place] [id number] SPECIMEN INFORMATION: Tissue Source: Distal esophageal mass Clinical Info: Pulmonary embolism, mass of multiple sites liver Specimen Number: [id number] CPT code: 89069, 73631 x6 METHODOLOGY: Deparaffinized sections of prefer/formalin-fixed tissue or PAP/DQ stained slides are incubated with monoclonal/polyclonal antibodies/oligonucleotide probes. Localization is made via biotin free immunoperoxidase method. Appropriate controls are performed and reacted as expected. Results on target cell population are indicated in the following table: RESULTS: ANTIBODY / CLONE RESULT Ki-67 (30-9) positive, high P53 (DO-7) positive MLH-1 (M1) positive MSH2 (25D12) positive MSH6 (44) positive PMS2 (YZO7812) positive Her-2neu (CB11) negative These tests were developed and their performance characteristics determined by [facility]. They may not have been cleared or approved by the U.S. Food and Drug Administration. The FDA has determined that such clearance or approval is not necessary. The above immunohistochemical/dualISH markers are ordered and reviewed by the Pathologist. INTERPRETATION: Distal esophageal mass, biopsy: Moderately differentiated invasive adenocarcinoma. Result of Microsatellite Instability Study: Negative (no loss of mismatch protein; no microsatellite instability detected). SJ:estrada 02/17/2021
[2021-02-12] MEDS: 0.9% Normal Saline 1,000 ML 75 ML IV (04:55)
[2021-02-12 06:56] LABS: Absolute Lymphocyte Count 0.58 X10^3/uL (0.83-4.51); Absolute Neutrophil Count 3.5 X10^3/uL (2.0-7.7); Basophil# 0.05 X10^3/uL; Eosinophil# 0.23 X10^3/uL; Eosinophils% 4.6 % (0-5); Hematocrit 32.2 % (40-54); Hemoglobin 10.6 g/dL (13.0-16.5); Lymphocyte # 0.58 X10^3/ul (0.83-4.51); Lymphocyte % 11.6 % (19-41); Mean Corp Hgb Conc 32.9 g/dL (32-36); Mean Corpuscular Hgb 28.3 pg (27.0-32.0); Mean Corpuscular Volume 85.9 fL (80-94); Mean Platelet Vol. 10.5 fl (6.2-12.0); Monocyte# 0.59 X10^3/uL; Monocyte% 11.8 % (0-10); NRBC Flagged by Analyzer 0 % (0-5); Neutrophil # 3.48 X10^3/uL (2.7-7.7); POSITIVE DIFFERENTIAL YES; Platelet Count 183 K/mm3 (150-450); RBC Distribution Width CV 14.7 % (11.6-14.6); RBC Distribution Width SD 45.9 fl (35.1-43.9); Red Blood Count 3.75 M/mm3 (4.6-6.2)
[2021-02-12 06:59] LABS: Differential Indicated SCAN CRITERIA MET
[2021-02-12 07:06] LABS: International Normalized Ratio 1.3; Prothrombin Time (Protime)PT. 15.5 SECONDS (11.7-14.9)
[2021-02-12 07:14] LABS: ALB/GLOB Ratio 0.6 RATIO (0.9-2.4); AST(SGOT) 31 U/L (15-37); Alanine Aminotransfer ALT/SGPT 20 U/L (16-61); Albumin, Serum 2.7 g/dL (3.2-5.0); Alkaline Phosphatase 109 U/L (45-117); Anion Gap 10 (5-15); BUN 41 mg/dL (7-18); BUN/Creat Ratio 33.1 RATIO (10-20); Calcium,Total 8.4 mg/dL (8.5-10.1); Chloride 101 mmol/L (98-107); Creatinine, Serum 1.24 mg/dL (0.70-1.30); EST Glomerular Filtration Rate 61 mL/min (>60); Est Glom Filt Rate - Afr Amer 74 mL/min (>60); Estimated Creatinine Clearance 56.51 ml/min; Globulin 4.2 g/dL (2.2-4.2); Glucose 80 mg/dL (74-106); Potassium 3.7 mmol/L (3.5-5.1); Protein, Total 6.9 g/dL (6.4-8.2); Sodium Level 134 mmol/L (136-145)
--- NOTE | 2021-02-12 08:05 | ESO_PTH ---
PATIENT: LUIS MANUEL ZACARIAS LOC: MS3 U#:[id number] AGE/SX: 71/M ROOM: [facility] [place] RE02/10/[address]: Dr. Alec Vazquez DO : 1950 BED: 1 DIS: 02/16/2021 SPEC #: [id number] RECD: 02/12/21 10:30 STATUS: JANE LCIF #: [id number] BENNETT: 02/12/21 08:[address]: Casey Alejandro DEPT: SURGICAL PATHOLOGY RECD BY: Jose Daniel Quiñonez ENTERED: 02/13/21 09:37 SP TYPE: ABIGAIL NUNN DR: MD Dr. Brendan Todd MD Dora Richardson, LABOR RELATIONS OR PERSONNEL NEGOTIATOR-C Tissues: Esophagus, NOS Procedures: Surgery Specimen Level IV HEADER OPERATION: EGD PRE-OP DIAGNOSIS: Pulmonary embolism, mass of multiple sites liver TISSUE SUBMITTED: Distal esophageal mass, biopsy MICROSCOPIC DIAGNOSIS Distal esophageal mass, biopsy: Moderately differentiated adenocarcinoma. See comment. 1129/21 COMMENT Immunohistochemistry ([id number]) for mismatched repair protein (microsatellite instability) will be performed and results will be reported separately. MICROSCOPIC DESCRIPTION Slides are reviewed. GROSS DESCRIPTION Received is one container labeled with the patient name and designated distal esophageal mass. The specimen consists of multiple irregular fragments of light rhodes soft tissue that in aggregate measure 2.0 x 1.0 x 0.2 cm. The specimen is totally submitted in one cassette. / SJ:cc 02/13/21 TC:0 CPT: 81497
--- NOTE | 2021-02-12 08:30 | OP.EGD_ITS ---
Patient Name: Gurvinder Montalvo Procedure Date: 02/12/2021 7:47 AM Date of : 1950 Age: 71 Procedure: Upper GI endoscopy Indications: Heartburn Providers: Casey Alejandro DO Patient Profile: This is a 71 year old male. Refer to note in patient chart for documentation of history and physical. Patient has symptoms of dysphagia with both liquids and solids. The symptoms first began December. Complications: No immediate complications. Procedure: Pre-Anesthesia Assessment: - Prior to the procedure, a History and Physical was performed, and patient medications and allergies were reviewed. The risks and benefits of the procedure and the sedation options and risks were discussed with the patient. All questions were answered and informed consent was obtained. Patient identification and proposed procedure were verified by the physician in the pre-procedure area. Mental Status Examination: alert and oriented. Airway Examination: normal oropharyngeal airway and neck mobility. Respiratory Examination: clear to auscultation. CV Examination: normal. Prophylactic Antibiotics: The patient does not require prophylactic antibiotics. Prior Anticoagulants: The patient has taken no previous anticoagulant or antiplatelet agents. ASA Grade Assessment: II - A patient with mild systemic disease. After reviewing the risks and benefits, the patient was deemed in satisfactory condition to undergo the procedure. The anesthesia plan was to use moderate sedation / analgesia (conscious sedation). Immediately prior to administration of medications, the patient was re-assessed for adequacy to receive sedatives. The heart rate, respiratory rate, oxygen saturations, blood pressure, adequacy of pulmonary ventilation, and response to care were monitored throughout the procedure. The physical status of the patient was re-assessed after the procedure. After obtaining informed consent, the endoscope was passed under direct vision. Throughout the procedure, the patient's blood pressure, pulse, and oxygen saturations were monitored continuously. The gastroscope was introduced through the and advanced to the. The gastroscope was introduced through the mouth, and advanced to the second part of duodenum. The upper GI endoscopy was accomplished without difficulty. The patient tolerated the procedure well. Moderate Sedation: Moderate (conscious) sedation was administered by the endoscopy nurse and supervised by the endoscopist. The patient's oxygen saturation, heart rate, blood pressure and response to care were monitored. Total physician intraservice time was 15 minutes. Scope In: 8:04:04 AM Scope Out: 8:16:41 AM Total Procedure Duration Time 0 hours 12 minutes 37 seconds Findings: A large, ulcerating mass with bleeding and stigmata of recent bleeding was found in the lower third of the esophagus, 37 cm from the incisors. The mass was partially obstructing and partially circumferential (involving one-third of the lumen circumference). This was biopsied with a cold forceps for histology. Verification of patient identification for the specimen was done. Estimated blood loss was minimal. LA Grade D (one or more mucosal breaks involving at least 75% of esophageal circumference) esophagitis with no bleeding was found 34 to 37 cm from the incisors. The entire examined stomach was normal. Many non-bleeding linear duodenal ulcers with no stigmata of bleeding were found in the duodenal bulb, in the first portion of the duodenum, in the second portion of the duodenum and in the third portion of the duodenum. Impression: - Partially obstructing, malignant esophageal tumor was found in the lower third of the esophagus. Biopsied. - LA Grade D reflux esophagitis. - Normal stomach. - Multiple non-bleeding duodenal ulcers with no stigmata of bleeding. Recommendation: - Return patient to hospital [facility] for ongoing care. - Advance diet as tolerated. - Give Protonix (pantoprazole): initiate therapy with 80 mg IV bolus, then 8 mg/hr IV by continuous infusion today. - Use sucralfate suspension 1 gram PO QID. - Continue present medications. Procedure Code(s): --- Professional --- 17976, Esophagogastroduodenoscopy, flexible, transoral; with biopsy, single or multiple G0500, Moderate sedation services provided by the same physician or other qualified health care team assistant performing a gastrointestinal endoscopic service that sedation supports, requiring the presence of an independent trained observer to assist in the monitoring of the patient's level of consciousness and physiological status; initial 15 minutes of intra-service time; patient age 5 years or older (additional time may be reported with 87865, as appropriate) CPT copyright 2017 [employer] [place] [employer]. All rights reserved. The codes documented in this report are preliminary and upon film and video graphics designer review may be revised to meet current compliance requirements. Casey Alejandro DO 02/12/2021 8:30:05 AM This report has been signed electronically. Number of Addenda: 1 Note Initiated On: 02/12/2021 7:47 AM Addendum Number: 1 Addendum Date: 11/20/2021 6:34:45 AM MAC was used instead of moderate sedation for this patient. Casey Alejandro, 11/20/2021 6:34:50 AM This report has been signed electronically.
[2021-02-12] MEDS: 0.9% Saline Lock 10 ML Syringe IV ×3 (09:21→18:29)
[2021-02-12] MEDS: proCHLORPERazine 10 MG/2 ML Vial 5 MG IV (09:21)
--- NOTE | 2021-02-12 09:28 | PN.HOSP_ITS ---
Subjective Subjective Doing well, no issues overnight. Had some nausea yesterday and adjustments were made, he is able to tolerate clear liquids but not much else. We will plan for EGD and colonoscopy today. Objective Data Objective Data Vital Signs: Vital Signs Temp Pulse Resp BP Pulse Ox 98.0 F 65 16 143/73 H 100 02/12/21 09:13 02/12/21 09:13 02/12/21 09:13 02/12/21 09:13 02/12/21 09:13 Oxygen Delivery Method Room Air Weight: 172 lb 2.014 oz Body Mass Index (BMI) 24.0 Intake & Output: Intake and Output for Last 24 Hours 02/11/21 02/12/21 02/13/21 03:59 03:59 03:59 Intake Total 1000 / 1000 1650.5 / 1650.5 872.5 / 872.5 Output Total 700 / 700 0 / 0 Balance 1000 / 1000 950.5 / 950.5 872.5 / 872.5 Medical Nutrition Assessment Dietitian: Malnutrition Criteria Met Start: 02/11/21 14:13 Freq: Status: Active Protocol: Document 02/11/21 14:20 BP (Rec: 02/11/21 14:22 BP [id number]) Nutrition Malnutrition Evidence of Malnutrition Exists Yes Malnutrition (severe): Chronic Evidenced By Suboptimal Energy Intake ( Severe),Weight Loss (Severe), Physical Changes (Severe) Clinical Problem Chronic Disease or Condition Related Malnutrition Etiology Severe malnutrition in the context of chronic illness as evidenced by inadequate oral intake and altered GI function Signs/Symptoms as evidenced by pt report poor oral intake x ~ 2 months with anorexia x 6 weeks and consuming mainly fluids, experiencing nausea & episodes of vomiting daily, unintentional wt loss of 52.9 lbs/23% x ~2 months (severe), signs/symptoms of severe muscle/fat wasting. Status Active Problem Recommendation Dietitian Recommendations/Changes 1.) As unlikely that patient will meet estimated nutrition needs via PO diet recommend consideration of Enteral Nutrition support if in line with patient and family wishes . If unlikely to tolerate EN given nausea/vomiting then recommend consideration of parenteral nutrition support. 2.) As pt medically able rec LIONEL Regular with fortified foods at meals. 3.) Will discontinue ONS per pt request as dislikes. Lab / Micro Data Result Diagrams: 02/12/21 06:20 02/12/21 06:20 Labs: Laboratory Results - last 24 hr 02/11/21 10:19: Blood Type O NEGATIVE 02/11/21 10:45: Urine Color Yellow, Urine Clarity Clear, Urine pH 5.0, Ur Specific [place] 1.015, Urine Protein 15 H, Urine Glucose (UA) Normal, Urine Ketones 15 H, Urine Occult Blood 10 H, Urine Nitrite Negative, Urine Bilirubin Negative, Urine Urobilinogen Normal, Ur Leukocyte Esterase Negative, Urine RBC 0-5 SEEN, Urine WBC 0-5 SEEN, Ur Squamous Epith Cells 0-5 SEEN, Urine Bacteria 0 SEEN, Hyaline Casts 0-5 SEEN, Urine Mucus 1+ 02/11/21 20:00: PT 17.4 H, INR 1.5 02/11/21 23:50: COVID-19 (KHALIF) Not Detected 02/12/21 06:20: PT 15.5 H, INR 1.3 02/12/21 06:20: WBC 5.0, RBC 3.75 L, Hgb 10.6 L, Hct 32.2 L, MCV 85.9, MCH 28.3, MCHC 32.9, RDW Std Deviation 45.9 H, RDW Coeff of Maciej 14.7 H, Plt Count 183, MPV 10.5, Immature Gran % (Auto) 1.000 H, Neut % (Auto) 70.0, Lymph % (Auto) 11.6 L, [place] % (Auto) 11.8 H, Eos % (Auto) 4.6, Baso % (Auto) 1.0, Absolute Neuts (auto) 3.5, Absolute Lymphs (auto) 0.58 L, Nucleated RBC % 0 02/12/21 06:20: Sodium 134 L, Potassium 3.7, Chloride 101, Carbon Dioxide 23.0, Anion Gap 10, BUN 41 H, Creatinine 1.24, Estim Creat Clear Calc 56.51, Est GFR (MDRD) Af Amer 74, Est GFR (MDRD) Non-Af 61, BUN/Creatinine Ratio 33.1 H, Glucose 80, Calcium 8.4 L, Total Bilirubin 0.90, AST 31, ALT 20, Alkaline Phosphatase 109, Total Protein 6.9, Albumin 2.7 L, Globulin 4.2, Albumin/Globulin Ratio 0.6 L Physical Exam Const alert, oriented x3 and no apparent distress General Appearance: cooperative HEENT normocephalic and moist oral mucous membranes Eyes PERRL, EOMs intact bilaterally and conjunctivae normal Neck supple and no JVD Resp normal respiratory effort, no retractions, no use of accessory muscles and clear to auscultation bilaterally Auscultation: Negative for crackles, rales, rhonchi or wheezes Cardio regular rate, regular rhythm, S1 normal heart sound, S2 normal heart sound and no murmurs GI soft to palpation, non-tender and non-distended; Negative for hepatosplenomegaly Extremity no clubbing, cyanosis or edema Skin no rashes or lesions noted Neuro no focal motor deficits and no sensory deficits noted Psych affect normal Appearance: appropriate Assessment & Plan Assessment/Plan (1) Acute kidney injury: (2) Mass of multiple sites of liver: (3) Failure to thrive in adult: (4) Generalized weakness: PLAN: 1. Severe protein calorie malnutrition secondary to anorexia/JONO/coagulopathy/possible metastatic cancer -He is down to about 170 pounds and used to be 325 pounds -INR improved to 1.3 with p.m. vitamin K. We will plan for a heparin drip given the new DVTs and PEs that he had about a month ago ?We will consult gastroenterology for evaluation of the liver lesions, he states that he has never had a colonoscopy and given the appearance of metastatic lesions in the liver, may benefit from having a colonoscopy/EGD to evaluate for possible primary lesion ?Renal function is improving creatinine is 1.24 today down from 2.2 on admission 2. History of DVT and PE ?Given the lesions in the liver it is possible that the previous PE and DVT was secondary to a hypercoagulable state from cancer ?Transition to heparin given the supratherapeutic INR which is now corrected DVT: Heparin drip Charges/Coding Visit Charges Inpatient E&M: 87130 Subs Hosp L2
[2021-02-12 09:56] LABS: Partial Thromboplast Time 39.1 Seconds (24.1-36.2)
[2021-02-12] MEDS: Heparin Injection (Vial) 5,000 UNIT/ML VIAL 4000 UNIT IV (11:03)
[2021-02-12] MEDS: HEPARIN/D5w 25,000 UNITS 25,000 UNITS/250 ML IV.SOLN. 9 UNITS IV (11:15)
[2021-02-12] MEDS: Sucralfate 1 GM Tablet PO (11:17)
[2021-02-12] MEDS: Megestrol 40 MG Tablet PO ×2 (12:53→21:50)
[2021-02-12 18:15] LABS: Partial Thromboplast Time 199.1 Seconds (24.1-36.2)
[2021-02-13] MEDS: 0.9% Normal Saline 1,000 ML 75 ML IV (01:30)
[2021-02-13 02:19] LABS: Absolute Lymphocyte Count 0.75 X10^3/uL (0.83-4.51); Absolute Neutrophil Count 3.4 X10^3/uL (2.0-7.7); Basophil# 0.03 X10^3/uL; Basophil% 0.6 % (0-1); Eosinophil# 0.23 X10^3/uL; Eosinophils% 4.5 % (0-5); Hemoglobin 9.2 g/dL (13.0-16.5); Lymphocyte # 0.75 X10^3/ul (0.83-4.51); Lymphocyte % 14.5 % (19-41); Mean Corp Hgb Conc 34.1 g/dL (32-36); Mean Corpuscular Hgb 29.4 pg (27.0-32.0); Mean Corpuscular Volume 86.3 fL (80-94); Mean Platelet Vol. 10.2 fl (6.2-12.0); Monocyte% 13.6 % (0-10); NRBC Flagged by Analyzer 0 % (0-5); Neutrophil # 3.42 X10^3/uL (2.7-7.7); Neutrophil % 66.2 % (47-70); Platelet Count 140 K/mm3 (150-450); RBC Distribution Width CV 14.7 % (11.6-14.6); RBC Distribution Width SD 46.6 fl (35.1-43.9); Red Blood Count 3.13 M/mm3 (4.6-6.2); White Blood Count 5.2 K/mm3 (4.4-11.0)
[2021-02-13 02:29] LABS: Partial Thromboplast Time 81.8 Seconds (24.1-36.2)
[2021-02-13 02:35] LABS: Anion Gap 9 (5-15); BUN 28 mg/dL (7-18); Calcium,Total 8.2 mg/dL (8.5-10.1); Chloride 106 mmol/L (98-107); Creatinine, Serum 0.96 mg/dL (0.70-1.30); EST Glomerular Filtration Rate 81 mL/min (>60); Est Glom Filt Rate - Afr Amer 98 mL/min (>60); Estimated Creatinine Clearance 72.99 ml/min; Glucose 75 mg/dL (74-106); Potassium 3.6 mmol/L (3.5-5.1); Sodium Level 136 mmol/L (136-145)
[2021-02-13 02:52] LABS: International Normalized Ratio 1.5; Prothrombin Time (Protime)PT. 16.9 SECONDS (11.7-14.9)
[2021-02-13 05:31] VITALS: BP 152/92; PULSE 64; RESP 18; TEMP 37; O2SAT 99
[2021-02-13] MEDS: Megestrol 40 MG Tablet PO ×3 (05:33→21:48)
[2021-02-13] MEDS: Sucralfate 1 GM Tablet PO ×3 (05:33→16:09)
[2021-02-13 08:02] VITALS: O2SAT 96
[2021-02-13 09:15] VITALS: BP 160/70; PULSE 60; RESP 16; TEMP 36.6; O2SAT 100
--- NOTE | 2021-02-13 09:55 | PN.HOSP_ITS ---
Subjective Subjective Still refusing to try to eat out of fear, I encouraged him to at least try to advance his diet so far he seems hesitant. EGD yesterday demonstrated a distal esophageal mass biopsies were obtained and pathology is pending Objective Data Objective Data Vital Signs: Vital Signs Temp Pulse Resp BP Pulse Ox 97.9 F 60 16 160/70 H 100 02/13/21 09:15 02/13/21 09:15 02/13/21 09:15 02/13/21 09:15 02/13/21 09:15 Oxygen Delivery Method Room Air Weight: 172 lb 2.014 oz Body Mass Index (BMI) 24.0 Intake & Output: Intake and Output for Last 24 Hours 02/12/21 02/13/21 02/14/21 03:59 03:59 03:59 Intake Total 1650.5 / 1650.5 2653.03 / 2653.03 590.83 / 590.83 Output Total 700 / 700 400 / 400 Balance 950.5 / 950.5 2253.03 / 2253.03 590.83 / 590.83 Medical Nutrition Assessment Dietitian: Malnutrition Criteria Met Start: 02/11/21 14:13 Freq: Status: Active Protocol: Document 02/11/21 14:20 BP (Rec: 02/11/21 14:22 BP [id number]) Nutrition Malnutrition Evidence of Malnutrition Exists Yes Malnutrition (severe): Chronic Evidenced By Suboptimal Energy Intake ( Severe),Weight Loss (Severe), Physical Changes (Severe) Clinical Problem Chronic Disease or Condition Related Malnutrition Etiology Severe malnutrition in the context of chronic illness as evidenced by inadequate oral intake and altered GI function Signs/Symptoms as evidenced by pt report poor oral intake x ~ 2 months with anorexia x 6 weeks and consuming mainly fluids, experiencing nausea & episodes of vomiting daily, unintentional wt loss of 52.9 lbs/23% x ~2 months (severe), signs/symptoms of severe muscle/fat wasting. Status Active Problem Recommendation Dietitian Recommendations/Changes 1.) As unlikely that patient will meet estimated nutrition needs via PO diet recommend consideration of Enteral Nutrition support if in line with patient and family wishes . If unlikely to tolerate EN given nausea/vomiting then recommend consideration of parenteral nutrition support. 2.) As pt medically able rec LIONEL Regular with fortified foods at meals. 3.) Will discontinue ONS per pt request as dislikes. Lab / Micro Data Result Diagrams: 02/13/21 02:10 02/13/21 02:10 Labs: Laboratory Results - last 24 hr 02/12/21 06:20: APTT 39.1 H 02/12/21 17:30: APTT 199.1 H* 02/13/21 02:10: PT 16.9 H, INR 1.5 02/13/21 02:10: WBC 5.2, RBC 3.13 L, Hgb 9.2 L, Hct 27.0 L, MCV 86.3, MCH 29.4, MCHC 34.1, RDW Std Deviation 46.6 H, RDW Coeff of Maciej 14.7 H, Plt Count 140 L, MPV 10.2, Immature Gran % (Auto) 0.600, Neut % (Auto) 66.2, Lymph % (Auto) 14.5 L, [place] % (Auto) 13.6 H, Eos % (Auto) 4.5, Baso % (Auto) 0.6, Absolute Neuts (auto) 3.4, Absolute Lymphs (auto) 0.75 L, Nucleated RBC % 0 02/13/21 02:10: Sodium 136, Potassium 3.6, Chloride 106, Carbon Dioxide 21.0, Anion Gap 9, BUN 28 H, Creatinine 0.96, Estim Creat Clear Calc 72.99, Est GFR (MDRD) Af Amer 98, Est GFR (MDRD) Non-Af 81, BUN/Creatinine Ratio 29.0 H, Glucose 75, Calcium 8.2 L 02/13/21 02:10: APTT 81.8 H Physical Exam Const alert, oriented x3 and no apparent distress General Appearance: cooperative HEENT normocephalic and moist oral mucous membranes Eyes PERRL, EOMs intact bilaterally and conjunctivae normal Neck supple and no JVD Resp normal respiratory effort, no retractions, no use of accessory muscles and clear to auscultation bilaterally Auscultation: Negative for crackles, rales, rhonchi or wheezes Cardio regular rate, regular rhythm, S1 normal heart sound, S2 normal heart sound and no murmurs GI soft to palpation, non-tender and non-distended; Negative for hepatosplenomegaly Extremity no clubbing, cyanosis or edema Skin no rashes or lesions noted Neuro no focal motor deficits and no sensory deficits noted Psych affect normal Appearance: appropriate Assessment & Plan Assessment/Plan (1) Acute kidney injury: (2) Mass of multiple sites of liver: (3) Failure to thrive in adult: (4) Generalized weakness: PLAN: 1. Severe protein calorie malnutrition secondary to anorexia/JONO/coagulopathy/esophageal cancer -He is down to about 170 pounds and used to be 325 pounds -INR improved to 1.3 with p.o. vitamin K. We will plan for a heparin drip given the new DVTs and PEs that he had about a month ago ?Appreciate gastroenterology's assistance. 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 intake therefore we will transition his fluids to have dextrose in it ?Renal function is improving creatinine will continue to monitor ?PT/OT for evaluation for possible placement 2. History of DVT and PE ?Given the lesions in the liver it is possible that the previous PE and DVT was secondary to a hypercoagulable state from cancer ?Transition to heparin given the supratherapeutic INR which is now corrected DVT: Heparin drip Charges/Coding Visit Charges Inpatient E&M: 97789 Subs Hosp L2
[2021-02-13] MEDS: Dext 5%-0.45% NS 1,000 ML 75 ML IV ×2 (10:19→23:45)
[2021-02-13 10:20] LABS: Partial Thromboplast Time 50.9 Seconds (24.1-36.2)
[2021-02-13 11:15] VITALS: BP 133/71; PULSE 76; RESP 16; TEMP 37; O2SAT 99
[2021-02-13 14:12] VITALS: BP 160/74; PULSE 61; RESP 16; TEMP 36.8; O2SAT 99
[2021-02-13] MEDS: HEPARIN/D5w 25,000 UNITS 25,000 UNITS/250 ML IV.SOLN. 6 UNITS IV (16:08)
[2021-02-13 18:34] LABS: Partial Thromboplast Time 52.2 Seconds (24.1-36.2)
[2021-02-13 20:16] VITALS: BP 160/83; PULSE 60; RESP 18; TEMP 36.7; O2SAT 99
[2021-02-14] VITALS (7 sets, daily range): BP systolic 147–177; BP diastolic 70–80; PULSE 65–76; RESP 16–18; TEMP 36.6–36.9; O2SAT 98–100
[2021-02-14] MEDS: Sucralfate 1 GM Tablet PO ×3 (06:17→15:38)
[2021-02-14] MEDS: Megestrol 40 MG Tablet PO ×3 (06:17→21:25)
[2021-02-14 10:03] LABS: Absolute Lymphocyte Count 0.54 X10^3/uL (0.83-4.51); Absolute Neutrophil Count 3.1 X10^3/uL (2.0-7.7); Basophil# 0.03 X10^3/uL; Basophil% 0.6 % (0-1); Eosinophil# 0.25 X10^3/uL; Eosinophils% 5.3 % (0-5); Hemoglobin 9.6 g/dL (13.0-16.5); Lymphocyte # 0.54 X10^3/ul (0.83-4.51); Lymphocyte % 11.4 % (19-41); Mean Corp Hgb Conc 34.3 g/dL (32-36); Mean Corpuscular Hgb 28.9 pg (27.0-32.0); Mean Corpuscular Volume 84.3 fL (80-94); Mean Platelet Vol. 10.8 fl (6.2-12.0); Monocyte# 0.76 X10^3/uL; Monocyte% 16.1 % (0-10); NRBC Flagged by Analyzer 0 % (0-5); Neutrophil % 65.8 % (47-70); POSITIVE DIFFERENTIAL YES; Platelet Count 146 K/mm3 (150-450); RBC Distribution Width CV 14.8 % (11.6-14.6); RBC Distribution Width SD 45.6 fl (35.1-43.9); Red Blood Count 3.32 M/mm3 (4.6-6.2); White Blood Count 4.7 K/mm3 (4.4-11.0)
[2021-02-14 10:05] LABS: Differential Indicated SCAN CRITERIA MET
--- NOTE | 2021-02-14 10:08 | PCM.PN.HOSP ---
Subjective Subjective Doing well, Jennifer is help with his nausea but he still hesitant to take anything p.o. Objective Data Objective Data Vital Signs: Vital Signs Temp Pulse Resp BP Pulse Ox 98.5 F 67 16 163/72 H 99 02/14/21 07:54 02/14/21 07:54 02/14/21 07:54 02/14/21 07:54 02/14/21 07:54 Oxygen Delivery Method Room Air Weight: 172 lb 2.014 oz Body Mass Index (BMI) 24.0 Intake & Output: Intake and Output for Last 24 Hours 02/13/21 02/14/21 02/15/21 03:59 03:59 03:59 Intake Total 2653.03 / 2653.03 3113.95 / 3113.95 Output Total 400 / 400 1100 / 1100 300 / 300 Balance 2253.03 / 2253.03 -270 / -270 Medical Nutrition Assessment Dietitian: Malnutrition Criteria Met Start: 02/11/21 14:13 Freq: Status: Active Protocol: Document 02/11/21 14:20 BP (Rec: 02/11/21 14:22 BP [id number]) Nutrition Malnutrition Evidence of Malnutrition Exists Yes Malnutrition (severe): Chronic Evidenced By Suboptimal Energy Intake ( Severe),Weight Loss (Severe), Physical Changes (Severe) Clinical Problem Chronic Disease or Condition Related Malnutrition Etiology Severe malnutrition in the context of chronic illness as evidenced by inadequate oral intake and altered GI function Signs/Symptoms as evidenced by pt report poor oral intake x ~ 2 months with anorexia x 6 weeks and consuming mainly fluids, experiencing nausea & episodes of vomiting daily, unintentional wt loss of 52.9 lbs/23% x ~2 months (severe), signs/symptoms of severe muscle/fat wasting. Status Active Problem Recommendation Dietitian Recommendations/Changes 1.) As unlikely that patient will meet estimated nutrition needs via PO diet recommend consideration of Enteral Nutrition support if in line with patient and family wishes . If unlikely to tolerate EN given nausea/vomiting then recommend consideration of parenteral nutrition support. 2.) As pt medically able rec LIONEL Regular with fortified foods at meals. 3.) Will discontinue ONS per pt request as dislikes. Lab / Micro Data Result Diagrams: 02/14/21 09:10 02/13/21 02:10 Labs: Laboratory Results - last 24 hr 02/13/21 09:20: APTT 50.9 H 02/13/21 17:26: APTT 52.2 H 02/14/21 00:30: APTT 123.0 H* 02/14/21 09:10: WBC 4.7, RBC 3.32 L, Hgb 9.6 L, Hct 28.0 L, MCV 84.3, MCH 28.9, MCHC 34.3, RDW Std Deviation 45.6 H, RDW Coeff of Maciej 14.8 H, Plt Count 146 L, MPV 10.8, Immature Gran % (Auto) 0.800, Neut % (Auto) 65.8, Lymph % (Auto) 11.4 L, [place] % (Auto) 16.1 H, Eos % (Auto) 5.3 H, Baso % (Auto) 0.6, Absolute Neuts (auto) 3.1, Absolute Lymphs (auto) 0.54 L, Nucleated RBC % 0 Physical Exam Const alert, oriented x3 and no apparent distress General Appearance: cooperative HEENT normocephalic and moist oral mucous membranes Eyes PERRL, EOMs intact bilaterally and conjunctivae normal Neck supple and no JVD Resp normal respiratory effort, no retractions, no use of accessory muscles and clear to auscultation bilaterally Auscultation: Negative for crackles, rales, rhonchi or wheezes Cardio regular rate, regular rhythm, S1 normal heart sound, S2 normal heart sound and no murmurs GI soft to palpation, non-tender and non-distended; Negative for hepatosplenomegaly Extremity no clubbing, cyanosis or edema Skin no rashes or lesions noted Neuro no focal motor deficits and no sensory deficits noted Psych affect normal Appearance: appropriate Assessment & Plan Assessment/Plan (1) Acute kidney injury: (2) Mass of multiple sites of liver: (3) Failure to thrive in adult: (4) Generalized weakness: PLAN: 1. Severe protein calorie malnutrition secondary to anorexia/JONO/coagulopathy/esophageal cancer -He is down to about 170 pounds and used to be 325 pounds -INR improved to 1.3 with p.o. vitamin K. We will discontinue heparin drip and place him on Eliquis 2.5 mg p.o.twice daily decision regards to his esophageal mass that was found to potentially bleeding earlier, continue with Protonix drip ?Continue to encourage p.o. intake ?We will continue to monitor INR, given his malnutrition I do anticipate a climbing and he may need to have another dose of vitamin K ?Appreciate gastroenterology's assistance. 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 intake therefore we will transition his fluids to have dextrose in it ?Renal function is improving creatinine will continue to monitor ?PT/OT for evaluation for possible placement 2. History of DVT and PE ?Given the lesions in the liver it is possible that the previous PE and DVT was secondary to a hypercoagulable state from cancer ?We will transition heparin to p.o. Eliquis DVT: Eliquis Charges/Coding Visit Charges Inpatient E&M: 11979 Subs Hosp L2
[2021-02-14 10:17] LABS: International Normalized Ratio 1.9; Prothrombin Time (Protime)PT. 20.8 SECONDS (11.7-14.9)
[2021-02-14] MEDS: APIXABAN 2.5 MG TABLET PO ×2 (10:33→21:27)
[2021-02-14 10:38] LABS: Partial Thromboplast Time 51.6 Seconds (24.1-36.2)
[2021-02-14] MEDS: Dext 5%-0.45% NS 1,000 ML 75 ML IV (12:35)
[2021-02-14] MEDS: 0.9% Saline Lock 10 ML Syringe IV (22:03)
[2021-02-14] MEDS: hydrALAZINE 20 MG/ML Vial 5 MG IV (22:04)
[2021-02-15] MEDS: Dext 5%-0.45% NS 1,000 ML 75 ML IV ×2 (00:30→13:55)
[2021-02-15 04:11] VITALS: BP 138/87; PULSE 80; RESP 16; TEMP 36.7; O2SAT 97
[2021-02-15] MEDS: 0.9% Saline Lock 10 ML Syringe IV ×4 (05:41→21:38)
[2021-02-15] MEDS: Ondansetron 4 MG/2 ML Vial IV ×2 (05:41→21:43)
[2021-02-15] MEDS: Sucralfate 1 GM Tablet PO ×3 (06:03→16:43)
[2021-02-15] MEDS: Megestrol 40 MG Tablet PO ×3 (06:03→21:21)
[2021-02-15 06:32] LABS: Absolute Lymphocyte Count 0.43 X10^3/uL (0.83-4.51); Basophil# 0.03 X10^3/uL; Basophil% 0.7 % (0-1); Eosinophil# 0.25 X10^3/uL; Eosinophils% 5.4 % (0-5); Hematocrit 28.3 % (40-54); Hemoglobin 9.5 g/dL (13.0-16.5); Lymphocyte # 0.43 X10^3/ul (0.83-4.51); Lymphocyte % 9.4 % (19-41); Mean Corp Hgb Conc 33.6 g/dL (32-36); Mean Corpuscular Hgb 28.1 pg (27.0-32.0); Mean Corpuscular Volume 83.7 fL (80-94); Mean Platelet Vol. 10.5 fl (6.2-12.0); Monocyte# 0.88 X10^3/uL; Monocyte% 19.2 % (0-10); NRBC Flagged by Analyzer 0 % (0-5); Neutrophil # 2.97 X10^3/uL (2.7-7.7); Neutrophil % 64.6 % (47-70); POSITIVE DIFFERENTIAL YES; Platelet Count 145 K/mm3 (150-450); RBC Distribution Width CV 14.8 % (11.6-14.6); Red Blood Count 3.38 M/mm3 (4.6-6.2); White Blood Count 4.6 K/mm3 (4.4-11.0)
[2021-02-15 06:36] LABS: Differential Indicated SCAN CRITERIA MET; International Normalized Ratio 2.8; Prothrombin Time (Protime)PT. 28.4 SECONDS (11.7-14.9)
[2021-02-15 06:55] LABS: Anion Gap 10 (5-15); BUN 8 mg/dL (7-18); BUN/Creat Ratio 9.3 RATIO (10-20); Chloride 101 mmol/L (98-107); Creatinine, Serum 0.86 mg/dL (0.70-1.30); EST Glomerular Filtration Rate 92 mL/min (>60); Est Glom Filt Rate - Afr Amer 112 mL/min (>60); Estimated Creatinine Clearance 81.48 ml/min; Glucose 94 mg/dL (74-106); Potassium 2.9 mmol/L (3.5-5.1); Sodium Level 133 mmol/L (136-145)
[2021-02-15 07:02] LABS: Differential Comment SCANNED
[2021-02-15 08:22] LABS: Magnesium 1.1 mg/dL (1.6-2.6); Phosphorus 1.7 mg/dL (2.5-4.9)
[2021-02-15 09:07] VITALS: BP 165/83; PULSE 83; RESP 18; TEMP 36.8; O2SAT 99
[2021-02-15] MEDS: proCHLORPERazine 10 MG/2 ML Vial 5 MG IV (09:30)
[2021-02-15] MEDS: APIXABAN 2.5 MG TABLET PO ×2 (09:31→21:22)
--- NOTE | 2021-02-15 11:54 | PCM.PN.HOSP ---
Subjective Subjective He is not eating because he does not think the food tastes good I explained to him that he needs to eat to maintain his nutrition so if he needs to undergo chemo or radiation or even surgery that his survival is improved. He does not seem to understand this Objective Data Objective Data Vital Signs: Vital Signs Temp Pulse Resp BP Pulse Ox 98.2 F 83 18 165/83 H 99 02/15/21 09:07 02/15/21 09:07 02/15/21 09:07 02/15/21 09:07 02/15/21 09:07 Oxygen Delivery Method Room Air Weight: 172 lb 2.014 oz Body Mass Index (BMI) 24.0 Intake & Output: Intake and Output for Last 24 Hours 02/14/21 02/15/21 02/16/21 03:59 03:59 03:59 Intake Total 3113.95 / 3113.95 2364.35 / 2364.35 100 / 100 Output Total 1100 / 1100 700 / 700 1100 / 1100 Balance / 1664.35 / 1664.35 -1000 / -1000 Medical Nutrition Assessment Dietitian: Malnutrition Criteria Met Start: 02/11/21 14:13 Freq: Status: Active Protocol: Document 02/11/21 14:20 BP (Rec: 02/11/21 14:22 BP [id number]) Nutrition Malnutrition Evidence of Malnutrition Exists Yes Malnutrition (severe): Chronic Evidenced By Suboptimal Energy Intake ( Severe),Weight Loss (Severe), Physical Changes (Severe) Clinical Problem Chronic Disease or Condition Related Malnutrition Etiology Severe malnutrition in the context of chronic illness as evidenced by inadequate oral intake and altered GI function Signs/Symptoms as evidenced by pt report poor oral intake x ~ 2 months with anorexia x 6 weeks and consuming mainly fluids, experiencing nausea & episodes of vomiting daily, unintentional wt loss of 52.9 lbs/23% x ~2 months (severe), signs/symptoms of severe muscle/fat wasting. Status Active Problem Recommendation Dietitian Recommendations/Changes 1.) As unlikely that patient will meet estimated nutrition needs via PO diet recommend consideration of Enteral Nutrition support if in line with patient and family wishes . If unlikely to tolerate EN given nausea/vomiting then recommend consideration of parenteral nutrition support. 2.) As pt medically able rec LIONEL Regular with fortified foods at meals. 3.) Will discontinue ONS per pt request as dislikes. Lab / Micro Data Result Diagrams: 02/15/21 05:15 02/15/21 05:15 Labs: Laboratory Results - last 24 hr 02/15/21 05:15: WBC 4.6, RBC 3.38 L, Hgb 9.5 L, Hct 28.3 L, MCV 83.7, MCH 28.1, MCHC 33.6, RDW Std Deviation 45.0 H, RDW Coeff of Maciej 14.8 H, Plt Count 145 L, MPV 10.5, Immature Gran % (Auto) 0.700, Neut % (Auto) 64.6, Lymph % (Auto) 9.4 L, [place] % (Auto) 19.2 H, Eos % (Auto) 5.4 H, Baso % (Auto) 0.7, Absolute Neuts (auto) 3.0, Absolute Lymphs (auto) 0.43 L, Nucleated RBC % 0, Differential Comment SCANNED 02/15/21 05:15: PT 28.4 H, INR 2.8 02/15/21 05:15: Sodium 133 L, Potassium 2.9 L, Chloride 101, Carbon Dioxide 22.0, Anion Gap 10, BUN 8, Creatinine 0.86, Estim Creat Clear Calc 81.48, Est GFR (MDRD) Af Amer 112, Est GFR (MDRD) Non-Af 92, BUN/Creatinine Ratio 9.3 L, Glucose 94, Calcium 8.0 L 02/15/21 05:15: Phosphorus 1.7 L, Magnesium 1.1 L Physical Exam Const alert, oriented x3 and no apparent distress General Appearance: cooperative HEENT normocephalic and moist oral mucous membranes Eyes PERRL, EOMs intact bilaterally and conjunctivae normal Neck supple and no JVD Resp normal respiratory effort, no retractions, no use of accessory muscles and clear to auscultation bilaterally Auscultation: Negative for crackles, rales, rhonchi or wheezes Cardio regular rate, regular rhythm, S1 normal heart sound, S2 normal heart sound and no murmurs GI soft to palpation, non-tender and non-distended; Negative for hepatosplenomegaly Extremity no clubbing, cyanosis or edema Skin no rashes or lesions noted Neuro no focal motor deficits and no sensory deficits noted Psych affect normal Appearance: appropriate Assessment & Plan Assessment/Plan (1) Acute kidney injury: (2) Mass of multiple sites of liver: (3) Failure to thrive in adult: (4) Generalized weakness: PLAN: 1. Severe protein calorie malnutrition secondary to anorexia/JONO/coagulopathy/esophageal cancer -He is down to about 170 pounds and used to be 325 pounds ?We will discontinue heparin drip and place him on Eliquis 2.5 mg p.o.twice daily decision regards to his esophageal mass that was found to potentially bleeding earlier, continue with Protonix drip ?Continue to encourage p.o. intake ?INR today is 2.8, will give him another dose of p.o. vitamin K ?We will also replace his magnesium and phosphorus ?Appreciate gastroenterology's assistance. 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 intake, may need to proceed with a possible PEG tube versus PICC line and TPN, this will likely depend on the pathology of the biopsied lesion ?It is partially obstructing, and he is nervous about his p.o. intake therefore we will transition his fluids to have dextrose in it ?Renal function is improving creatinine will continue to monitor ?PT/OT for evaluation for possible placement 2. History of DVT and PE ?Given the lesions in the liver it is possible that the previous PE and DVT was secondary to a hypercoagulable state from cancer ?We will transition heparin to p.o. Eliquis DVT: Eliquis Charges/Coding Visit Charges Inpatient E&M: 52964 Subs Hosp L2
[2021-02-15] MEDS: Phytonadione (Vit K1) 5 MG TABLET PO (12:55)
[2021-02-15 15:00] VITALS: BP 153/90; PULSE 71; RESP 18; TEMP 36.6; O2SAT 98
[2021-02-15] MEDS: Magnesium Sulfate 4gm/100mL 4 GM/100 ML IV.SOLN. IV (21:17)
[2021-02-15 21:38] VITALS: BP 163/88; PULSE 73
[2021-02-15] MEDS: hydrALAZINE 20 MG/ML Vial 5 MG IV (21:38)
[2021-02-15 22:00] VITALS: BP 163/88; PULSE 73; RESP 18; TEMP 36.7; O2SAT 99
[2021-02-16] MEDS: Dext 5%-0.45% NS 1,000 ML 75 ML IV (03:03)
[2021-02-16 03:05] VITALS: BP 150/70; PULSE 72; RESP 16; TEMP 36.8; O2SAT 97
[2021-02-16] MEDS: Sucralfate 1 GM Tablet PO ×2 (06:06→10:46)
[2021-02-16] MEDS: Megestrol 40 MG Tablet PO ×2 (06:06→13:23)
[2021-02-16] MEDS: APIXABAN 2.5 MG TABLET PO (07:28)
[2021-02-16 07:48] LABS: Anion Gap 9 (5-15); BUN 6 mg/dL (7-18); Calcium,Total 7.9 mg/dL (8.5-10.1); Chloride 103 mmol/L (98-107); Creatinine, Serum 0.85 mg/dL (0.70-1.30); EST Glomerular Filtration Rate 94 mL/min (>60); Est Glom Filt Rate - Afr Amer 113 mL/min (>60); Estimated Creatinine Clearance 82.44 ml/min; Glucose 89 mg/dL (74-106); Phosphorus 3.2 mg/dL (2.5-4.9); Potassium 3.3 mmol/L (3.5-5.1); Sodium Level 135 mmol/L (136-145)
[2021-02-16 08:05] VITALS: O2SAT 97
[2021-02-16 08:34] VITALS: BP 156/88; PULSE 78; RESP 16; TEMP 36.8; O2SAT 98
--- NOTE | 2021-02-16 10:48 | CASEMGMT ---
KATHRYN ADAME in to pt room as pt nurse states that pt cannot afford Eliquis. Pt and in room. Pt states he has already used an eliquis card in December. He states he cannot be on coumadin and would not do a shot in the abdomen. Pt states they will be getting more insurance today. She states the PCP tried to get the eliquis free but pt and finances did not qualify. KATHRYN ADAME offered pt assistance as a one time fix. They state this would be helpful and the next refill should be covered more when they have more insurance. Discussed the option of HHC, pt denies need for this. States he is set up at home. Pt/ deny further needs.
[2021-02-16 13:24] VITALS: BP 167/98; PULSE 77; RESP 16; TEMP 36.5; O2SAT 100
--- NOTE | 2021-02-16 13:49 | DCINST_ITS ---
Discharge Instructions Diet Discharge Diet: - (Full liquid diet, soft foods as tolerated) Activity Discharge Activity: Return to Normal Activity Follow Up Care Test Results: Test results from this visit will be discussed in further detail at your follow-up appointment, if applicable. Discharge Plan Admission Admit Date/Time: 02/10/21 22:59 Primary Reason for Your Visit: esophageal cancer Attending Provider: Alec Vazquez Primary Care Provider: Ximena Rey NP Consulting Providers: Casey Alejandro Discharge Orders/Prescriptions Prescriptions: New Eliquis 2.5 mg Tablet 2.5 mg PO BID Qty: 60 RF: 0 sucralfate [Carafate] 100 mg/mL suspension 10 ml PO BID Qty: 400 RF: 0 morphine concentrate 100 mg/5 mL (20 mg/mL) solution 10 mg PO Q4H 7 Days Qty: 30 RF: 0 pantoprazole 40 mg tablet,delayed release (DR/EC) 40 mg PO BID Qty: 60 RF: 0 Continued albuterol sulfate [Ventolin HFA] 90 mcg/actuation HFA aerosol inhaler 2 puff inhalation Q4H PRN (Reason: asthma) 30 Days Qty: 8 RF: 3 Discontinued warfarin 5 mg tablet 5 mg PO DAILY Qty: 90 RF: 12 Referrals / Follow Up: Ximena Rey NP, [employer]TAIN-C [Primary Care Provider] - Disposition Disposition (needs filled in before D/C Order can be placed): Home, Self Care
--- NOTE | 2021-02-16 14:14 | PCM.DC.SUM ---
Providers Date of Admission: 02/10/21 Date of Discharge: 02/16/21 Primary Care Physician: WILMAR Yang Consultations 02/11/21 07:58 Consult: Gastroenterology Routine Consulting Provider: Casey Alejandro Reason for Consult: New significant liver lesions with anorexia, weight loss and recent PE EMERGENT Consult: No MD Notified: Yes Date Notified: 02/11/21 Time Notified: 08:13 Method of Notification: Text Reason For Visit: JONO, LIVER CANCER Diagnosis Discharge Diagnosis (1) Acute kidney injury: Code(s): N17.9 - Acute kidney failure, unspecified (2) Mass of multiple sites of liver: Status: Acute Code(s): R16.0 - Hepatomegaly, not elsewhere classified (3) Failure to thrive in adult: Status: Acute Code(s): R62.7 - Adult failure to thrive (4) Generalized weakness: Status: Acute Code(s): R53.1 - Weakness Plan: 1. 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 #3 esophageal cancer #4 severe protein and caloric malnutrition-in the context of chronic illness as evidenced by inadequate oral intake and altered GI function as evidenced by patient report of poor oral intake x2 months with anorexia x6 weeks with unintentional weight loss of 52.9 pounds over the last 2 months-treated with LIONEL regular with fortified foods at meals, patient declined enteral nutrition support #5 history of recent DVT and PE Medications at Discharge Home Medications albuterol sulfate 90 mcg/actuation aerosol inhaler 2 puff INHALATION Q4H PRN 30 Days #8 g 12/25/19 apixaban [Eliquis] 2.5 mg PO BID #60 tab 02/16/21 morphine concentrate 10 mg PO Q4H 7 Days #30 ml 02/16/21 pantoprazole 40 mg PO BID #60 tab 02/16/21 sucralfate [Carafate] 10 ml PO BID #400 ml 02/16/21 Hospital Course Operations None Procedures EGD Summary of Care Provided Minutes Spent on Discharge: 32 Hospital Course: This 71-year-old white male was seen in the emergency room at [facility] with chief complaint of generalized weakness and anorexia that had been progressing over the past 2 months. He was referred to the emergency room for evaluation by his primary care nurse practitioner, patient has been unable to eat or drink anything over the past couple of months due to persistent nausea and vomiting. Work-up in the emergency room included a CT scan of the abdomen and pelvis-there were multiple liver lesions concerning for malignancy, chemistry profile showed a BUN of 50 and a creatinine of 2.2. Patient was admitted for acute kidney injury, he was seen by gastroenterology and an EGD was performed showing a distal esophageal neoplasm which was biopsied. Patient was seen by nutritional services. Patient's pathology report of his distal esophageal biopsy returned a diagnosis of adenocarcinoma. Patient was unsure whether he wanted to seek treatment for this, I gave him the name and phone number of an oncologist that I talked with on the phone about his case. On 02/16/2021, patient was seen and examined: On examination he appeared his stated age. Vital signs as documented. Skin warm and dry and without overt rashes. Neck without JVD, neck was supple, trachea midline, thyroid was normal. Lungs clear bilaterally, normal air movement was noted. Heart exam notable for regular rhythm, normal sounds and absence of murmurs, rubs or gallops. Abdomen unremarkable and without evidence of organomegaly, masses, or abdominal aortic enlargement. Bowel sounds are present, abdomen is not distended. Extremities nonedematous, no cyanosis was noted, no clubbing was noted. Neuro: Cranial nerves II through XII are grossly intact, no focal motor deficits were noted, sensation to light touch and pinprick intact, motor exam 5/5 throughout. Psych: Patient is alert and oriented x3, he does not appear anxious or depressed, he does not appear agitated. Patient was discharged home in stable condition on 02/16/2021, overall prognosis was poor. Under direction of gastroenterology, it was recommended that the patient be discharged on Eliquis 2.5 mg twice daily due to his recent history of PE and DVT. Medical Records Data Medical Nutrition Assessment Dietitian: Malnutrition Criteria Met Start: 02/11/21 14:13 Freq: Status: Active Protocol: Document 02/16/21 13:03 RMA (Rec: 02/16/21 13:04 RMA [id number]) Nutrition Malnutrition Evidence of Malnutrition Exists Yes Malnutrition (severe): Chronic Evidenced By Suboptimal Energy Intake ( Severe),Weight Loss (Severe), Physical Changes (Severe) Clinical Problem Chronic Disease or Condition Related Malnutrition Etiology Severe malnutrition in the context of chronic illness as evidenced by inadequate oral intake and altered GI function Signs/Symptoms as evidenced by pt report poor oral intake x ~ 2 months with anorexia x 6 weeks and consuming mainly fluids, experiencing nausea & episodes of vomiting daily, unintentional wt loss of 52.9 lbs/23% x ~2 months (severe), signs/symptoms of severe muscle/fat wasting, refusing oral intake since admission. Status Active Problem Recommendation Dietitian Recommendations/Changes Unlikely that patient will meet estimated nutrition needs PO, recommend Enteral Nutrition Support. Advance diet as tolerated to Regular with fortified foods at meals. Patient refusing all oral nutrition supplements and PO nutrition at this time. Pt remains adamant on not eating and going home. Weight / BMI Weight Weight: 78.075 kg Body Mass Index (BMI) 24.0 ABG / Lab / Microbiology Data Result Diagrams: 02/15/21 05:15 02/16/21 05:02 Laboratory: Laboratory Results - last 24 hr 02/16/21 05:02: Sodium 135 L, Potassium 3.3 L, Chloride 103, Carbon Dioxide 23.0, Anion Gap 9, BUN 6 L, Creatinine 0.85, Estim Creat Clear Calc 82.44, Est GFR (MDRD) Af Amer 113, Est GFR (MDRD) Non-Af 94, BUN/Creatinine Ratio 7.0 L, Glucose 89, Calcium 7.9 L, Phosphorus 3.2, Magnesium 2.0 D/C Instructions Discharge Diet: - (Full liquid diet, soft foods as tolerated) Meaningful Use Info Meaningful Use Diagnoses (Choose all that apply): None applicable Discharge Plan Admission Admit Date/Time: 02/10/21 22:59 Primary Reason for Your Visit: esophageal cancer Attending Provider: Alec Vazquez Primary Care Provider: Ximena Rey NP Consulting Providers: Casey Alejandro Discharge Orders/Prescriptions Prescriptions: New Eliquis 2.5 mg Tablet 2.5 mg PO BID Qty: 60 RF: 0 sucralfate [Carafate] 100 mg/mL suspension 10 ml PO BID Qty: 400 RF: 0 morphine concentrate 100 mg/5 mL (20 mg/mL) solution 10 mg PO Q4H 7 Days Qty: 30 RF: 0 pantoprazole 40 mg tablet,delayed release (DR/EC) 40 mg PO BID Qty: 60 RF: 0 Continued albuterol sulfate [Ventolin HFA] 90 mcg/actuation HFA aerosol inhaler 2 puff inhalation Q4H PRN (Reason: asthma) 30 Days Qty: 8 RF: 3 Discontinued warfarin 5 mg tablet 5 mg PO DAILY Qty: 90 RF: 12 Referrals / Follow Up: Ximena Rey [employer] K[employer]TLE OPERATOR, [employer] K[employer]TLE OPERATOR-C [Primary Care Provider] - Disposition Disposition (needs filled in before D/C Order can be placed): Home, Self Care Charges/Coding Visit Charges Inpatient E&M: 15772 Disch Hosp
--- NOTE | 2021-02-16 14:46 | CASEMGMT ---
TC to [facility], spoke with Evangelist aware pt financial assistance will be utilized. Cost of carafate is over $200. States if changed to tablet and dissolved in water, the cost is a third. Cortext to hospitalist to see if able to be changed. Faxed pt assistance to [facility] pharmacy and asked meds to be delivered to room.
== END 2021-02-16 16:06 | disposition home or self-care (01) | DRG 374 ==
LOC: ED 23:03 → MS3 23:11
PROVIDERS: Anesthesiology; Family Medicine; Internal Medicine Gastroenterology; Admitting Provider Hospitalist; Emergency Provider Emergency Medicine; PCP Nurse Practitioner; Visit Provider Internal Medicine
PROC: 0DJD8ZZ Inspection of Lower Intestinal Tract, Via Natural or Artificial Opening Endoscopic (ICD-10-PCS; CPT 45378; principal; 2021-02-12 08:00)
DX: C15.5 Malignant neoplasm of lower third of esophagus (principal); E43 Unspecified severe protein-calorie malnutrition; N17.9 Acute kidney failure, unspecified; C78.7 Secondary malignant neoplasm of liver and intrahepatic bile duct; E87.1 Hypo-osmolality and hyponatremia; K21.00 Gastro-esophageal reflux disease with esophagitis, without bleeding; K26.9 Duodenal ulcer, unspecified as acute or chronic, without hemorrhage or perforation; K82.8 Other specified diseases of gallbladder; R62.7 Adult failure to thrive; R53.1 Weakness; R63.0 Anorexia; J45.909 Unspecified asthma, uncomplicated; Z23 Encounter for immunization; Z68.22 Body mass index [BMI] 22.0-22.9, adult; Z79.01 Long term (current) use of anticoagulants; Z79.899 Other long term (current) drug therapy; Z87.891 Personal history of nicotine dependence; Z86.711 Personal history of pulmonary embolism; Z86.718 Personal history of other venous thrombosis and embolism
CPT/HCPCS: 36415; 71045; 74176; 80048; 80053; 80076; 81001; 83735; 84100; 85025; 85610; 85730; 86900; 86901; 87635; 88305; 88341; 88342; 93005; 97110; 97162; 97166; 97530; 97802; 97803; 99284; J7030; J7040; P9017; U0005; A4216; J2405; J3490; J7799; U0003